=== PATIENT | female | born 1950 | race Caucasian/White ===

== ENCOUNTER 2018-02-18 09:53 | Day surgery (SDC) | payer MEDICARE, SELFPAY ==
[2018-02-18] VITALS (11 sets, daily range): BP systolic 118–197; BP diastolic 40–75; PULSE 63–97; RESP 16–22; TEMP 36.6–37; O2SAT 92–98; BMI 23.2
--- NOTE | 2018-02-18 | FIST_PTH ---
PATIENT: DANIEL PETERSEN [place] [facility] [place][id number] AGE/SX: 67/F ROOM: RE02/18/[address]: Dr. Cristian Gallegos MD : 1950 BED: DIS: 02/18/2018 SPEC #: [id number] RECD: 02/18/18 15:17 STATUS: LADONNA DARIAN #: [id number] CASSIUS: 02/18/18 00:[address]: Cristian Gallegos DEPT: SURGICAL PATHOLOGY RECD BY: Estrada Moreno ENTERED: 02/19/18 08:17 SP TYPE: Fistula OTHR DR: Dr. Chavez Brown MD Tissues: Anal region Procedures: Surgery Specimen Level III HEADER OPERATION: Fistulotomy, anal PRE-OP DIAGNOSIS: Anal fistula TISSUE SUBMITTED: Fistula tract MICROSCOPIC DIAGNOSIS Fistula tract: Pieces of skin with underlying tissue with focal acute inflammation and granulation tissue reaction, consistent with clinical impression of fistula tract. SJ:sera 02/20/18 MICROSCOPIC DESCRIPTION Slides are reviewed. GROSS DESCRIPTION Received in fixative is one container labeled with the patient's name and designated fistula tract. The specimen consists of multiple pieces of muller-yellow soft tissue that in aggregate measure 2.5 x 2 x 0.3 cm. The entire specimen is submitted in one cassette. / SJ:sera 02/19/18 TC:5 CPT: 60240
[2018-02-18 10:36] LABS: Bedside Glucose 138 mg/dL (70-110)
[2018-02-18] MEDS: Dibucaine 30 GM Tube 1 APPLIC (12:20)
[2018-02-18] MEDS: Bupivacaine Mpf 0.5% 30 ML VIAL (12:21)
--- NOTE | 2018-02-18 12:32 | DCINST_ITS ---
Discharge Diet: No Restrictions Discharge Activity: Return to Normal Activity, May Not Drive - while taking narcotic pain medications. Additional Activity Instructions:: Do not drive or work with heavy equipment or sign legal documents for 24 hours. Be aware that pain medications may cause nausea. You should typically eat light foods as you take your pain medications. Pain medications may also cause constipation, if you have difficulty with this please discuss with your doctor. Additional Dressing/Incision Instructions:: Leave the operative bandage on for 2 days. If a local anesthetic plug was placed in the anal area, try not to expel for 24-[address] dibucaine ointment on the perianal area as needed. Sitz baths twice daily and after bowel movements. Allergies/Adverse Reactions: Allergies oxycodone HCl [From Percocet] Allergy (Verified 02/13/18 09:08) Unknown hydrocodone bitartrate [From Vicodin] Adverse Reaction (Verified 02/17/18 11:03) Vomiting morphine Adverse Reaction (Verified 02/17/18 11:03) Vomiting Medications to take at Discharge Acyclovir [Zovirax] 400 mg PO BID 02/13/18 Amoxicillin/Potassium Clav [Augmentin 875-125 Tablet] 1 each PO BID 02/13/18 Fluoxetine [Prozac] 30 mg PO DAILY 02/13/18 Fluticasone/Vilanterol [Breo Ellipta 200-25 Mcg INH] 1 each IH DAILY 02/13/18 Glimepiride 0.5 mg PO DAILY 02/13/18 Hydroxyzine Pamoate 25 mg PO TID 02/13/18 Meclizine HCl [Antivert] 25 mg PO 4X/DAY PRN PRN 02/13/18 Prochlorperazine Maleate [Compazine] 10 mg PO Q6H PRN PRN 02/13/18 Dibucaine [Nupercainal] 56.7 gm RC PRN PRN 14 Days #2 oint...g. 02/18/18 The following prescriptions were given: Dibucaine [Nupercainal] 56.7 gm RC PRN PRN 14 Days #2 oint...g. PRN Reason: Pain Primary Care Physician: Chavez Brown MD [Primary Care Provider] - Test Results: Test results from this visit will be discussed in further detail at your follow- up appointment, if applicable. Please Follow Up With: Cristian Gallegos MD - [phone] When: Plan to have a follow up approximately 7 days after surgery.
--- NOTE | 2018-02-18 12:35 | PCM.OPRPT ---
Report of Operation Date of Procedure: 02/18/18 Pre-Operative Diagnosis: right perianal fistula Post-Operative Diagnosis: right perianal fistula - superficial Surgery/Procedure Performed:: examination under anesthesia, simp-le fistulotomy data compiler: None Type of Anesthesia:: General Anesthesiologist: Joseph Suazo ASA3 Specimen's removed: fistula tract Estimated Blood Loss (mL): minimal Fluids Replaced: 500 Description of Procedure: The patient was brought to the operating suite. Sign in was performed verifying patient, site, procedure, position, and DVT prophylaxis with SCDs. Clindamycin 900mg Following induction of general anesthetic. The patient was transferred to supine position to the prone jackknife position with care being taken to avoid pressure points. The patients perineal area was then prepped and draped in the usual fashion. Timeout was performed verifying patient, site, procedure, and position. External examination demonstrated a sinus in the right anterior lateral position, approximate 4 cm from anal verge without significant inflammation By digital exam revealed no obvious palpable abnormalities Anoscopy was performed which demonstrated a normal appearing dentate line. Hydration peroxide was injected into the sinus. This seemed to track along the subcutaneous tissues right to the area of the dentate line, but there was no obvious internal anal opening at the dentate line as expected, following Goodsalls rule A fistula probe was then placed into the track. The external fistula opening was excised circumferentially and the track was opened. Excess tissue was excised and hemostasis obtained with electrocautery. With good hemostasis, half percent Marcaine was injected in the perianal skin and dibucaine impregnated Gelfoam was placed in the anal canal. A dressing was applied and mesh pants were used to hold the dressing in place. The patient was returned to the supine position and extubated and brought to recovery room in stable condition. - Admit VTE Documentation VTE Present on Admission: No VTE Mechan Device Prophylaxis: SCD's VTE Pharm Prophylaxis ordered?: No
--- NOTE | 2018-02-18 12:38 | OP.PCM_ITS ---
Report of Operation Date of Procedure: 02/18/18 Pre-Operative Diagnosis: right perianal fistula Post-Operative Diagnosis: right perianal fistula - superficial Surgery/Procedure Performed:: examination under anesthesia, simp-le fistulotomy senior buyer planner: None Type of Anesthesia:: General Anesthesiologist: Joseph Suazo ASA3 Specimen's removed: fistula tract Estimated Blood Loss (mL): minimal Fluids Replaced: 500 Description of Procedure: The patient was brought to the operating suite. Sign in was performed verifying patient, site, procedure, position, and DVT prophylaxis with SCDs. Clindamycin 900mg Following induction of general anesthetic. The patient was transferred to supine position to the prone jackknife position with care being taken to avoid pressure points. The patient?s perineal area was then prepped and draped in the usual fashion. Timeout was performed verifying patient, site, procedure, and position. External examination demonstrated a sinus in the right anterior lateral position , approximate 4 cm from anal verge without significant inflammation By digital exam revealed no obvious palpable abnormalities Anoscopy was performed which demonstrated a normal appearing dentate line. Hydration peroxide was injected into the sinus. This seemed to track along the subcutaneous tissues right to the area of the dentate line, but there was no obvious internal anal opening at the dentate line as expected, following Goodsall?s rule A fistula probe was then placed into the track. The external fistula opening was excised circumferentially and the track was opened. Excess tissue was excised and hemostasis obtained with electrocautery. With good hemostasis, half percent Marcaine was injected in the perianal skin and dibucaine impregnated Gelfoam was placed in the anal canal. A dressing was applied and mesh pants were used to hold the dressing in place. The patient was returned to the supine position and extubated and brought to recovery room in stable condition. - Admit VTE Documentation VTE Present on Admission: No VTE Mechan Device Prophylaxis: SCD's VTE Pharm Prophylaxis ordered?: No
--- NOTE | 2018-02-18 13:07 | SUR.PHASEI ---
ON ARRIVAL TO PACU: ALMOST CONTINUOUS HARSH COUGH, DUONEB ORDERED ON ARRIVAL, R.T. AT BEDSIDE TO ADMINISTER, WAS REPORTEDLY ALSO GIVEN INHALED ALBUTEROL WHILE STILL IN O.R. PER ENEIDA ALONZO CRNA. NOW C/O NAUSEA. DR SWARTZ CONSULTED, INSTRUCTED TO GIVE DILAUDID TO TRY RELAXING PATIENT ENOUGH TO STOP COUGHING. ZOFRAN GIVEN.
[2018-02-18 14:01] LABS: Bedside Glucose 208 mg/dL (70-110)
== END 2018-02-18 15:50 | disposition home or self-care (01) ==
LOC: SDC 09:55 → AC 09:58
PROVIDERS: Family Provider Family Medicine; PCP Family Medicine; Visit Provider Surgery
PROC: (CPT 46270; principal; 2018-02-18 11:20)
DX: K60.3 Anal fistula (principal); C91.11 Chronic lymphocytic leukemia of B-cell type in remission; F41.9 Anxiety disorder, unspecified; J45.909 Unspecified asthma, uncomplicated; I50.9 Heart failure, unspecified; J44.9 Chronic obstructive pulmonary disease, unspecified; F32.9 Major depressive disorder, single episode, unspecified; E11.9 Type 2 diabetes mellitus without complications; Z85.3 Personal history of malignant neoplasm of breast; Z79.84 Long term (current) use of oral hypoglycemic drugs; Z79.899 Other long term (current) drug therapy; F17.210 Nicotine dependence, cigarettes, uncomplicated
CPT/HCPCS: 46270; 82962; 88304; 94640; J7120; J2405

== ENCOUNTER 2019-10-18 06:38 | Day surgery (SDC) | payer MEDICARE, SELFPAY ==
[2019-08-05 12:56] VITALS: BMI 16.9
[2019-10-18 06:55] VITALS: BP 121/65; PULSE 89; RESP 18; TEMP 37.1; O2SAT 98; BMI 16.8
[2019-10-18] MEDS: Lactated Ringers 1,000 ML 100 ML IV (07:09)
[2019-10-18 07:40] LABS: Bedside Glucose 130 mg/dL (70-110)
--- NOTE | 2019-10-18 08:00 | EGD_PTH ---
PATIENT: DANIEL PETERSEN LOC: [facility] U#:[id number] AGE/SX: 69/F ROOM: RE10/18/[address]: Dr. Neville Campos MD : 1950 BED: DIS: 10/18/2019 SPEC #: [id number] RECD: 10/18/19 13:29 STATUS: LADONNA DARIAN #: [id number] CASSIUS: 10/18/19 08:[address]: Neville Campos DEPT: SURGICAL PATHOLOGY RECD BY: Yariel Zaman ENTERED: 10/19/19 09:23 SP TYPE: EGD BIOPSY OTHR DR: Dr. Chavez Brown MD Tissues: Gastric mucous membrane Procedures: Surgery Specimen Level IV HEADER OPERATION: Colonoscopy, EGD ([facility]) PRE-OP DIAGNOSIS: Weight loss, history polyps TISSUE SUBMITTED: Antrum biopsy for histo and H. pylori MICROSCOPIC DIAGNOSIS Gastric antrum, biopsy: Rare fragments of benign gastric mucosa. See comment. AM:sera 10/20/19 COMMENT The results of immunohistochemistry for Helicobacter pylori will be reported separately ([id number]). MICROSCOPIC DESCRIPTION Slides are reviewed. GROSS DESCRIPTION Received in fixative is one container labeled with the patient's name and designated antrum biopsy. The specimen consists of multiple minute fragments of muller soft tissue that in aggregate measure 0.3 x 0.1 x <0.1 cm. The specimen is totally submitted in one cassette. / SJ:sera 10/19/19 TC:3 CPT: 17432
--- NOTE | 2019-10-18 08:00 | IMM_PTH ---
PATIENT: DANIEL PETERSEN LOC: [facility] U#:[id number] AGE/SX: 69/F ROOM: RE10/18/[address]: Dr. Neville Campos MD : 1950 BED: DIS: 10/18/2019 SPEC #: [id number] RECD: 10/19/19 11:18 STATUS: LADONNA REArin #: [id number] CASSIUS: 10/18/19 08:[address]: Neville Campos DEPT: IMMUNOHISTOCHEMISTRY RECD BY: Zuleyka Garcia ENTERED: 10/19/19 11:18 SP TYPE: IMMUNO OTHR DR: Dr. Chvaez Brown MD Tissues: Stomach, NOS Procedures: H Pylori (initial) PHYSICIAN & INSTITUTION [place] [id number] SPECIMEN INFORMATION: Tissue Source: Antrum biopsy Clinical Info: Weight loss, history polyps Specimen Number: [id number] CPT code: 20779 METHODOLOGY: Deparaffinized sections of prefer/formalin-fixed tissue or PAP/DQ stained slides are incubated with monoclonal/polyclonal antibodies/oligonucleotide probes. Localization is made via biotin free immunoperoxidase method. Appropriate controls are performed and reacted as expected. Results on target cell population are indicated in the following table: RESULTS: ANTIBODY / CLONE RESULT H Pylori (polyclonal) negative These tests were developed and their performance characteristics determined by [facility]. They may not have been cleared or approved by the U.S. Food and Drug Administration. The FDA has determined that such clearance or approval is not necessary. INTERPRETATION: Antrum, biopsy: Negative for Helicobacter pylori organisms. AM:sera 10/20/19
--- NOTE | 2019-10-18 08:04 | PCM.HP.BLA ---
History and Physical Date of Admission: 10/18/19 [facility] [address] [place], [place] [id number] OFFICE VISIT Date of Service: 08/05/19 MR#: [id number] Acct: [id number] Name: DANIEL PETERSEN Rep #: [id number] : 1950 Provider: Neville Campos MD Age/Sex: 69/F Location: [facility] Status: Signed Intake Vital Signs 08/05/19 Height 5 ft 1 in 08/05/19 Weight: 90 lb 08/05/19 BMI 16.9 08/05/19 BP 94/58 L 08/05/19 Blood Pressure Location Rt brachial 08/05/19 Position Sitting 08/05/19 Respiration 18 08/05/19 Pulse 88 08/05/19 Pulse Source Monitor 08/05/19 Temp 98.0 F 08/05/19 Temp Source Oral 08/05/19 Pulse Oximetry (%) 93 08/05/19 Oxygen Delivery Method room air Intake Visit Reasons: EGD & C-SCOPE Allergies oxycodone HCl [From Percocet] Allergy (Verified 08/05/19 12:57) Unknown hydrocodone bitartrate [From Vicodin] Adverse Reaction (Verified 08/05/19 12:57) Vomiting morphine Adverse Reaction (Verified 08/05/19 12:57) Vomiting [facility] Medical History Anemia (Acute) Arthritis (Acute) Diabetes (Acute) History of back problems (Acute) Hyperlipidemia (Acute) Nausea (Acute) Tobacco abuse (Acute) Unintentional weight loss (Acute) diarhhea (Acute) COPD (chronic obstructive pulmonary disease) (Chronic) Surgical History History of appendectomy (Acute) History of hysterectomy (Acute) History of laparoscopic cholecystectomy (Acute) history left arm biopsy (Acute) history left carpal tunnel release (Acute) history right ulnar nerve decompression (Acute) Family History Father Arthritis Heart disease Mother Breast cancer Brother Cancer Hypertension Sister Cancer Uncle Diabetes Social History (Updated 08/05/19 @ 13:[address] Neville Campos MD) Smoking Status: Current every day smoker alcohol intake: never substance use type: does not use HPI HPI HPI: DANIEL PETERSEN, is a 69 F who presents to the office today for Evaluation of abnormal weight loss. Patient states that since 2018 she has lost over 36 pounds. This is all been unintentional she has been eating she has been moving her bowels she has not noticed any change in her bowel habits. Patient has had a colonoscopy on 02/24/2017. She was noted to have 2 polyps in the descending colon 1 of them of which was a tubular adenoma. 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 She states that she has been gassy and occasionally will have a loose stool but on average has between 2 and 3 bowel movements a day. She has not noticed any bloody or black stool she denies any abdominal pain ROS General General: Yes weight change and fatigue; no appetite, colon cancer, breast cancer or weakness HEENT HEENT: No difficulty swallowing, eye injury, eye surgery, swollen glands or hoarseness Endo Endocrine: Yes diabetes mellitus; no thyroid disease, thyroid cancer, Hair loss, heat intolerance or cold intolerance Skin Skin: No rash or changing moles Breast Breast: No left breast lump, right breast lump, nipple discharge, breast pain, abnormal mammogram, abnormal US or breast enlargement Musc Musculoskeletal: Yes back problems and arthritis; no rheumatoid arthritis, gout or joint pain Cardio Cardiovascular: Yes high blood pressure; no murmur, pacemaker, heart disease, atrial fibrillation, heart attack, heart stent, palpitations, shortness of breat with exertion or chest pain Psych Psychiatric: Yes depression and anxiety; no hearing voices Resp Respiratory: Yes shortness of breath, No sleep apnea, Yes cough, Yes COPD, No asthma, No emphysema, No wheezing Gastro Gastrointestinal: No abdominal pain, Yes nausea or vomiting, Yes diarrhea, No constipation, No blood in stool, No acid reflux, No hemorrhoids, No ulcers, No gallbladder problem, No black,tarry stools Joe Hematologic: No blood thinners, No blood disorders, No bleeding, Yes anemia, No blood clots Neuro Neurologic: No system reviewed and no additional complaints, except as docu, No as per HPI, No abnormal walking, No abnormal hearing, No abnormal movements, No abnormal speech, No behavioral changes, No burning sensations, No confusion, No seizure-like activity, No unsteadiness, No dizziness, No localized weakness, No frequent falls, No headache(s), No lack of coordination, No loss of vision, No memory loss, No numbness, No other visual disturbances, No radiating pain, No restless legs, No sensory deficit, No fainting, No tingling, No tremor(s), No weakness, No other Exam Const General: no acute distress, well developed, well hydrated Orientation: oriented to person, oriented to place, oriented to time [facility] Head: normocephalic, atraumatic Ears: external ears normal Mouth: moist mucous membranes Eyes Sclera: sclerae normal Pupils: normal by confrontation Neck Neck: no lymphadenopathy noted Neck mass: No Thyroid: thyroid normal, symmetrical Chest Chest palpation & inspection: normal inspection of the chest Breast Palpation: No nipple discharge Resp Effort & Inspection: normal respiratory effort Auscultation: clear to auscultation bilaterally Percussion: percussion normal Cardio Rate: regular rate Rhythm: regular rhythm Heart Sounds: no murmurs GI Palpation: soft, no hepatosplenomegaly, no masses, nontender Rectal Exam: other Other: Rectal exam deferred. Extrem General: normal to inspection, no clubbing, cyanosis or edema Assessment & Plan Problems 1. Weight loss, non-intentional R63.4 2. Personal history of colonic polyps Z86.010 Plan I have discussed the above with the patient. I have offered the patient colonoscopy As well as an EGD for evaluation. I have explained the risks/benefits of the procedure and described the procedure. I have discussed the risks with the patient, including but not limited to: infection, bleeding, perforation of the GI tract requiring emergency surgery, inability to complete the procedure, injury to any internal organs, complications of anesthesia, etc. - the patient understands and agrees to proceed. I have answered all the patient's questions to the patient's satisfaction and the patient has no further questions. The patient has been given instructions for the colon cleansing preparation. Coding Level of Care Code Off vis,new,level 3 Diagnoses Weight loss, non-intentional R63.4 Personal history of colonic polyps Z86.010 08/05/19 1301 <Electronically signed by Neville Campos MD> Date Neville Campos MD Cosigner Signature: Date (if applicable) CC: MARU HERCULES; Chavez Brown MD ~ I have re-examined the patient. There are no clinical changes since date of exam.
[2019-10-18 08:42] VITALS: BP 111/60; BP 121/65; PULSE 83; RESP 18; TEMP 37; O2SAT 99
--- NOTE | 2019-10-18 08:42 | OP.EGD_ITS ---
Patient Name: Casi Gerardo Procedure Date: 10/18/2019 8:06 AM Date of : 1950 Age: 69 Procedure: Upper GI endoscopy Indications: Weight loss Providers: Neville Campos MD Referring MD: Chavez Brown Medicines: See the Anesthesia note for documentation of the administered medications Patient Profile: This is a 69 year old female. Refer to note in patient chart for documentation of history and physical. Complications: No immediate complications. Procedure: Pre-Anesthesia Assessment: - Prior to the procedure, a History and Physical was performed, and patient medications and allergies were reviewed. The patient's tolerance of previous anesthesia was also reviewed. The risks and benefits of the procedure and the sedation options and risks were discussed with the patient. All questions were answered, and informed consent was obtained. Prior Anticoagulants: The patient has taken no previous anticoagulant or antiplatelet agents. ASA Grade Assessment: II - A patient with mild systemic disease. After reviewing the risks and benefits, the patient was deemed in satisfactory condition to undergo the procedure. After obtaining informed consent, the endoscope was passed under direct vision. Throughout the procedure, the patient's blood pressure, pulse, and oxygen saturations were monitored continuously. The gastroscope was introduced through the mouth, and advanced to the second part of duodenum. The upper GI endoscopy was accomplished without difficulty. The patient tolerated the procedure well. Scope In: 8:18:36 AM Scope Out: 8:22:48 AM Total Procedure Duration Time 0 hours 4 minutes 12 seconds Findings: The examined esophagus was normal. No biopsies or other specimens were collected for this exam. The entire examined stomach was normal. Biopsies were taken with a cold forceps for Helicobacter pylori testing. The examined duodenum was normal. No biopsies or other specimens were collected for this exam. Impression: - Normal esophagus. No specimens collected. - Normal stomach. Biopsied. - Normal examined duodenum. No specimens collected. Recommendation: - Discharge patient to home. - Resume previous diet. - Continue present medications. - Await pathology results. - Repeat upper endoscopy (date not yet determined) for surveillance. - Return to my office in 1 week. Procedure Code(s): --- Professional --- 16974, Esophagogastroduodenoscopy, flexible, transoral; with biopsy, single or multiple Diagnosis Code(s): --- Professional --- R63.4, Abnormal weight loss CPT copyright 2017 [employer]. All rights reserved. The codes documented in this report are preliminary and upon production operations engineer review may be revised to meet current compliance requirements. MD Neville Chapman MD 10/18/2019 8:42:09 AM This report has been signed electronically. Number of Addenda: 0 Note Initiated On: 10/18/2019 8:06 AM
--- NOTE | 2019-10-18 08:42 | OP.CCLET_ITS ---
10/18/2019 Chavez Brown Re : Upper GI endoscopy procedure for Casi Gerardo Xiomyr Kevin This procedure was performed on Friday, October 18, 2019. My impressions and recommendations are as follows: Impressions : - Normal esophagus. No specimens collected. - Normal stomach. Biopsied. - Normal examined duodenum. No specimens collected. Recommendations : - Discharge patient to home. - Resume previous diet. - Continue present medications. - Await pathology results. - Repeat upper endoscopy (date not yet determined) for surveillance. - Return to my office in 1 week. My findings are described in the full procedure note, which is enclosed. If I can be of further assistance, please feel free to contact me at Doctor phone number(s): , Fax: [phone], Work: . Sincerely, MD Neville Chapman MD 10/18/2019 8:42:09 AM This report has been signed electronically.
[2019-10-18 08:45] VITALS: BP 108/55; BP 121/65; PULSE 75; RESP 18; O2SAT 100
--- NOTE | 2019-10-18 08:46 | OP.COLON_ITS ---
Patient Name: Casi Gerardo Procedure Date: 10/18/2019 8:23 AM Date of : 1950 Age: 69 Procedure: Colonoscopy Indications: High risk colon cancer surveillance: Personal history of colonic polyps Providers: Neville Campos MD Referring MD: Chavez Brown Medicines: See the Anesthesia note for documentation of the administered medications Patient Profile: This is a 69 year old female. Refer to note in patient chart for documentation of history and physical. Last Colonoscopy: 2016. Complications: No immediate complications. Procedure: Pre-Anesthesia Assessment: - Prior to the procedure, a History and Physical was performed, and patient medications and allergies were reviewed. The patient's tolerance of previous anesthesia was also reviewed. The risks and benefits of the procedure and the sedation options and risks were discussed with the patient. All questions were answered, and informed consent was obtained. Prior Anticoagulants: The patient has taken no previous anticoagulant or antiplatelet agents. ASA Grade Assessment: II - A patient with mild systemic disease. After reviewing the risks and benefits, the patient was deemed in satisfactory condition to undergo the procedure. After I obtained informed consent, the scope was passed under direct vision. Throughout the procedure, the patient's blood pressure, pulse, and oxygen saturations were monitored continuously. The colonoscope was introduced through the anus with the intention of advancing to the cecum. The scope was advanced to the sigmoid colon before the procedure was aborted. Medications were given. The colonoscopy was aborted due to a tortuous colon. Scope In: 8:24:49 AM Scope Out: 8:38:02 AM Total Procedure Duration Time 0 hours 13 minutes 13 seconds Findings: Non-bleeding internal hemorrhoids were found during retroflexion. The hemorrhoids were mild and small. Impression: - The procedure was aborted due to a tortuous colon. - Non-bleeding internal hemorrhoids. - No specimens collected. Recommendation: - Perform an air contrast barium enema today. - Repeat colonoscopy in 5 years for surveillance. - Continue present medications. Procedure Code(s): --- Professional --- 48423, 53, Colonoscopy, flexible; diagnostic, including collection of specimen(s) by brushing or washing, when performed (separate procedure) Diagnosis Code(s): --- Professional --- Z86.010, Personal history of colonic polyps Z53.8, Procedure and treatment not carried out for other reasons K64.8, Other hemorrhoids CPT copyright 2017 [employer]. All rights reserved. The codes documented in this report are preliminary and upon frame polisher review may be revised to meet current compliance requirements. MD Neville Chapman MD 10/18/2019 8:45:52 AM This report has been signed electronically. Number of Addenda: 0 Note Initiated On: 10/18/2019 8:23 AM
--- NOTE | 2019-10-18 08:46 | OP.CCLET_ITS ---
10/18/2019 Chavez Brown Re : Colonoscopy procedure for Casi Staufferr Kevin This procedure was performed on Friday, October 18, 2019. My impressions and recommendations are as follows: Impressions : - The procedure was aborted due to a tortuous colon. - Non-bleeding internal hemorrhoids. - No specimens collected. Recommendations : - Perform an air contrast barium enema today. - Repeat colonoscopy in 5 years for surveillance. - Continue present medications. My findings are described in the full procedure note, which is enclosed. If I can be of further assistance, please feel free to contact me at Doctor phone number(s): , Fax: [phone], Work: . Sincerely, MD Neville Chapman MD 10/18/2019 8:45:52 AM This report has been signed electronically.
[2019-10-18 08:50] VITALS: BP 108/48; BP 121/65; PULSE 72; RESP 16; O2SAT 100
[2019-10-18 08:56] VITALS: BP 110/55; BP 121/65; PULSE 72; RESP 16; TEMP 36.9; O2SAT 97
[2019-10-18 09:56] VITALS: BP 121/65
--- NOTE | 2019-10-18 10:00 | RAD_ITS ---
STUDY: AIR-CONTRAST BARIUM ENEMA REASON FOR EXAM: Female, 69 years old. Weight loss. Incomplete colonoscopy FLUOROSCOPY TIME (if supplied): (1:15) minutes/seconds TECHNIQUE: Computer Information Science Professor view. Multiple views of the colon were performed during barium retrograde filling and during inflation. Multiple overhead views were also obtained. COMPARISON: None. FINDINGS: Computer Information Science Professor view: Unremarkable bowel gas pattern is noted there is no evidence of free air in the abdomen. Air contrast enema: Normal retrograde opacification of the colon is noted up to the cecum. No reflux is noted in the terminal ileal loop. Air contrast views and overhead views show no filling defect in the colon. There is no evidence of a restricting lesion or ulceration. Multiple diverticula are seen in the sigmoid colon without evidence of diverticulitis. The post void film shows no significant residue in the colon. RAD/Barium Enema w/Air Contrast IMPRESSION: Sigmoid diverticulosis. Electronically Signed: Carolynn Argueta, at 12:37 EDT Tel , Service support ,
== END 2019-10-18 09:58 | disposition home or self-care (01) ==
LOC: EN 06:39 → AC 06:39
PROVIDERS: PCP Family Medicine; Referring Provider Family Medicine; Visit Provider Surgery
PROC: 0DJD8ZZ Inspection of Lower Intestinal Tract, Via Natural or Artificial Opening Endoscopic (ICD-10-PCS; CPT 45378; principal; 2019-10-18 07:55)
DX: Z12.11 Encounter for screening for malignant neoplasm of colon (principal); Z86.010 Personal history of colon polyps; K64.8 Other hemorrhoids; R63.4 Abnormal weight loss; Z68.1 Body mass index [BMI] 19.9 or less, adult; E11.9 Type 2 diabetes mellitus without complications; E78.5 Hyperlipidemia, unspecified; J44.9 Chronic obstructive pulmonary disease, unspecified; M19.90 Unspecified osteoarthritis, unspecified site; F17.200 Nicotine dependence, unspecified, uncomplicated; Z86.19 Personal history of other infectious and parasitic diseases; Z85.72 Personal history of non-Hodgkin lymphomas; F41.9 Anxiety disorder, unspecified; F32.9 Major depressive disorder, single episode, unspecified; Z79.899 Other long term (current) drug therapy; Z79.84 Long term (current) use of oral hypoglycemic drugs; I10 Essential (primary) hypertension; Z11.59 Encounter for screening for other viral diseases
CPT/HCPCS: 43239; G0105; 74280; 82962; 87635; 88305; 88342; G2023; J7120; J2405; U0002

== ENCOUNTER → 2020-07-05 11:51 | Outpatient (CLI) | payer MEDICARE, SELFPAY ==
[2020-07-05 16:21] LABS: AST(SGOT) 7 U/L (15-37); Alanine Aminotransfer ALT/SGPT 8 U/L (13-56); Albumin, Serum 3.3 g/dL (3.2-5.0); Alkaline Phosphatase 139 U/L (45-117); Bilirubin, Direct < 0.05 mg/dL (0.00-0.30); Globulin 3.7 g/dL (2.2-4.2)
[2020-07-07 12:42] LABS: Carbohydrate AG 19-9 14 U/mL (0-35)
[2020-07-07 13:52] LABS: GGTP 16 U/L (5-55)
== END ==
PROVIDERS: PCP Family Medicine; Referring Provider Internal Medicine Gastroenterology; Visit Provider Internal Medicine Gastroenterology
DX: K83.1 Obstruction of bile duct (principal); R97.8 Other abnormal tumor markers
CPT/HCPCS: 36415; 80076; 82977; 86140; 86301

== ENCOUNTER 2021-03-22 13:27 | Inpatient (IN) | payer MEDICARE, SELFPAY ==
[2021-03-22] VITALS (10 sets, daily range): BP systolic 94–127; BP diastolic 44–74; PULSE 60–98; RESP 16–20; TEMP 36–38.2; O2SAT 86–99; BMI 17.5; BMI 17.9
--- NOTE | 2021-03-22 14:05 | RAD_ITS ---
STUDY: X-RAY CHEST REASON FOR EXAM: Female, 70 years old. Sob TECHNIQUE: Single AP portable view of the chest. COMPARISON: None. FINDINGS: EKG electrodes are seen. There is hyperinflation of the lungs consistent with chronic obstructive lung disease (COPD). There is evidence of the infiltration in the right upper lobe. Underlying right hilar mass with postobstructive pneumonitis should be ruled out. Correlation with a CT scan is recommended. There is no demonstrated pleural abnormality. Normal size heart. Normal visualized pulmonary arteries. There is atherosclerotic calcification of the aortic arch with tortuosity. Normal visualized thoracic spine. Normal visualized ribs, clavicles, and shoulders. There is no demonstrated abnormality of the visualized soft tissue structures of the upper abdomen. RAD/Chest 1 View (Portable) IMPRESSION: Hyperinflation. Infiltration in the right upper lobe. Correlation with a CT scan is recommended to rule out a right hilar mass with postobstructive pneumonitis. Electronically Signed: Ananth Mg MD at 14:25 EDT , Service support ,
--- NOTE | 2021-03-22 14:10 | EKG12_ITS ---
Test Reason : SOB Blood Pressure : / mmHG Vent. Rate : 079 BPM Atrial Rate : 079 BPM P-R Int : 178 ms QRS Dur : 090 ms QT Int : 382 ms P-R-T Axes : 077 060 003 degrees QTc Int : 438 ms Normal sinus rhythm with sinus arrhythmia Nonspecific T wave abnormality Abnormal ECG Confirmed by DONNA CANO, JAY ([id number]), food editor CARYL PRUITT ([id number]) on 03/27/2021 8:26:47 AM Referred By: Confirmed By:JAY THOMPSON MD
[2021-03-22 14:22] LABS: Absolute Lymphocyte Count 0.82 X10^3/uL (0.83-4.51); Absolute Neutrophil Count 10.4 X10^3/uL (2.0-7.7); Basophil# 0.04 X10^3/uL; Basophil% 0.3 % (0-1); Eosinophil# 0.62 X10^3/uL; Eosinophils% 4.8 % (0-5); Hematocrit 33.7 % (37-47); Hemoglobin 10.8 g/dL (12.0-15.0); Lymphocyte # 0.82 X10^3/ul (0.83-4.51); Lymphocyte % 6.3 % (19-41); Mean Corpuscular Hgb 30.6 pg (27.0-32.0); Mean Corpuscular Volume 95.5 fL (81-99); Mean Platelet Vol. 8.9 fl (6.2-12.0); Monocyte# 0.98 X10^3/uL; Monocyte% 7.6 % (0-10); NRBC Flagged by Analyzer 0 % (0-5); Neutrophil # 10.39 X10^3/uL (2.7-7.7); Neutrophil % 80.3 % (47-70); Platelet Count 380 K/mm3 (150-450); RBC Distribution Width CV 13.1 % (11.6-14.6); Red Blood Count 3.53 M/mm3 (4.2-5.4); White Blood Count 12.9 K/mm3 (4.4-11.0)
[2021-03-22] MEDS: Albuterol 2.5 MG/3 ML VIAL.NEB. INHALATION ×3 (14:25→14:39)
[2021-03-22 14:36] LABS: ALB/GLOB Ratio 0.6 RATIO (0.9-2.4); AST(SGOT) 3 U/L (15-37); Alanine Aminotransfer ALT/SGPT 7 U/L (13-56); Albumin, Serum 2.4 g/dL (3.2-5.0); Alkaline Phosphatase 130 U/L (45-117); Anion Gap 8 (5-15); BUN 13 mg/dL (7-18); BUN/Creat Ratio 20.7 RATIO (10-20); Calcium,Total 8.6 mg/dL (8.5-10.1); Chloride 99 mmol/L (98-107); Creatinine, Serum 0.63 mg/dL (0.55-1.02); EST Glomerular Filtration Rate 99 mL/min (>60); Est Glom Filt Rate - Afr Amer 120 mL/min (>60); Estimated Creatinine Clearance 34.36 ml/min; Globulin 4.1 g/dL (2.2-4.2); Glucose 160 mg/dL (74-106); Potassium 3.2 mmol/L (3.5-5.1); Protein, Total 6.5 g/dL (6.4-8.2); Sodium Level 137 mmol/L (136-145); Troponin-I HS 12 pg/mL (3.0-54.0)
--- NOTE | 2021-03-22 15:25 | ED.VIS.DYS ---
HPI History of Present Illness Chief Complaint: Shortness of Breath Narrative Narrative: Patient presents with shortness of breath for the past week, no fevers she does have a cough which is productive. She has a history of COPD, she is not on any home oxygen. She had her Covid vaccinations. She drove her self here and was found to be 88% on room air. [facility] Medical History (Updated 03/22/21 @ 15:[address] Russ Hay MD) Anemia Arthritis COPD (chronic obstructive pulmonary disease) Diabetes diarhhea History of back problems Hyperlipidemia Nausea Tobacco abuse Unintentional weight loss Home Medications hydroxyzine pamoate 25 mg PO TID 02/13/18 [History Last Taken Unknown] meclizine 25 mg PO 4X/DAY PRN PRN 02/13/18 [History Last Taken Unknown] prochlorperazine maleate 10 mg PO Q6H PRN PRN 02/13/18 [History Last Taken Unknown] fluoxetine 20 mg capsule 40 mg PO DAILY cap 08/05/19 [History Last Taken Unknown] fluticasone propionate 230 mcg-salmeterol 21 mcg/actuation HFA inhaler 2 puff INHALATION BID 08/05/19 [History Last Taken Unknown] ipratropium bromide 17 mcg/actuation HFA aerosol inhaler 2 puff INHALATION TID 08/05/19 [History Last Taken Unknown] lisinopril 5 mg tablet 5 mg PO DAILY 08/05/19 [History Last Taken 10/18/19] metformin 500 mg tablet 500 mg PO BID 08/05/19 [History Last Taken Unknown] pantoprazole 40 mg tablet,delayed release 40 mg PO DAILY 08/05/19 [History Last Taken 10/18/19] perflutren lipid microspheres 1.1 mg/mL intravenous suspension See Rx Instructions .ROUTE QMONTH ml 08/05/19 [History Last Taken Unknown] pravastatin 10 mg tablet 10 mg PO DAILY 08/05/19 [History Last Taken Unknown] tizanidine 4 mg capsule 4 mg PO TID PRN 08/05/19 [History Last Taken Unknown] trazodone 50 mg tablet 50 mg PO QHS PRN 08/05/19 [History Last Taken Unknown] albuterol sulfate 1 - 2 puff INHALATION Q4H PRN PRN 08/16/19 [History Last Taken 10/18/19] Allergy/AdvReac Type Severity Reaction Status Date / Time oxycodone HCl [From Percocet] Allergy Unknown Verified 03/22/21 13:56 hydrocodone bitartrate AdvReac Vomiting Verified 03/22/21 13:56 [From Vicodin] morphine AdvReac Vomiting Verified 03/22/21 13:56 Family History Father Arthritis Heart disease Mother Breast cancer Brother Cancer Hypertension Sister Cancer Uncle Diabetes Surgical History history left arm biopsy history left carpal tunnel release History of appendectomy History of esophagogastroduodenoscopy (EGD) (~10/18/19) History of hysterectomy History of laparoscopic cholecystectomy history right ulnar nerve decompression S/P colonoscopy (~10/18/19) Social History (Updated 10/26/19 @ 09:[address] Neville Campos MD) Smoking Status: Former smoker alcohol intake: never substance use type: does not use ROS ROS ED ROS Narrative Past medical history: Reviewed, includes COPD, diabetes, GERD, hypercholesterolemia, insomnia Medications: Reviewed Social history: Noncontributory Review of systems: All systems negative except as indicated General: No fever Eyes: No visual changes ENT: No upper airway congestion, normal voice Neck: No neck pain Cardiovascular: No chest pain Respiratory: Shortness of breath as in HPI Gastrointestinal: No abdominal pain, nausea vomiting or diarrhea Genitourinary: No dysuria Musculoskeletal: Denies myalgias no difficulty with ambulation Skin: No rash Neurological: No memory loss, confusion or any focal weakness Psych: No recent behavioral changes Hematologic: No easy bleeding or easy bruising EXAM Physical Exam Narrative Exam Narrative: Physical exam General: Well nourished, Well developed, No Acute Distress Head: Normocephalic, Atraumatic Eyes: Conjunctiva not pale ENT: Moist mucous membranes Neck: Supple, Nontender, No lymphadenopathy Cardiovascular: Regular rate, Regular rhythm Respiratory: Bilateral end expiratory wheezing, she is speaking in full sentences but by the time I saw her she was feeling much better on 2 L. Abdomen: Soft, Nontender, Nondistended Back: Nontender, Normal Inspection. Negative for: CVA tenderness Extremities: Nontender, No edema Skin: Normal color, No rash Neurological: Alert, Normal Strength, Normal Sensation Psychological: Normal affect Const Vital Signs: 03/22/21 13:27 03/22/21 13:57 03/22/21 13:58 Temperature 96.8 F L 96.8 F L Temperature Source Temporal Temporal Pulse Rate 98 84 Respiratory Rate 20 H 20 H Respiratory Effort Short of Breath Labored Respiratory Depth Normal Respiratory Pattern Normal Blood Pressure 94/44 L 94/44 L Blood Pressure Mean 60 60 Pulse Ox 92 88 98 Oxygen Delivery Method Room Air Room Air Nasal Cannula Oxygen Flow Rate (L/min) 2 03/22/21 14:26 Temperature Temperature Source Pulse Rate 82 Respiratory Rate 17 Respiratory Effort Respiratory Depth Respiratory Pattern Normal Blood Pressure Blood Pressure Mean Pulse Ox Oxygen Delivery Method Oxygen Flow Rate (L/min) MDM MDM MDM Narrative Medical decision making narrative: Patient is found to have a right-sided pneumonia which makes sense to me clinically she has some leukocytosis. I will treat her as such and admit her for hypoxia. Lab Data Labs: Laboratory Results - last 24 hr 03/22/21 03/22/21 14:05 14:05 WBC 12.9 H RBC 3.53 L Hgb 10.8 L Hct 33.7 L MCV 95.5 MCH 30.6 MCHC 32.0 RDW Std Deviation 46.0 H RDW Coeff of Nicholas 13.1 Plt Count 380 MPV 8.9 Immature Gran % (Auto) 0.700 Neut % (Auto) 80.3 H Lymph % (Auto) 6.3 L [place] % (Auto) 7.6 Eos % (Auto) 4.8 Baso % (Auto) 0.3 Absolute Neuts (auto) 10.4 H Absolute Lymphs (auto) 0.82 L Nucleated RBC % 0 Sodium 137 Potassium 3.2 L Chloride 99 Carbon Dioxide 30.0 Anion Gap 8 BUN 13 Creatinine 0.63 Estim Creat Clear Calc 34.36 Est GFR (MDRD) Af Amer 120 Est GFR (MDRD) Non-Af 99 BUN/Creatinine Ratio 20.7 H Glucose 160 H Calcium 8.6 Total Bilirubin 0.40 AST 3 L ALT 7 L Alkaline Phosphatase 130 H Troponin I High Sens 12 Total Protein 6.5 Albumin 2.4 L Globulin 4.1 Albumin/Globulin Ratio 0.6 L Radiography Diagnostic Testing: Clinical Impression(s) from Imaging Studies Chest X-Ray 03/22/21 14:05 IMPRESSION: Hyperinflation. Infiltration in the right upper lobe. Correlation with a CT scan is recommended to rule out a right hilar mass with postobstructive pneumonitis. Electronically Signed: Ananth Mg MD at 14:25 EDT , Service support , I see a right-sided pneumonia, radiologist wants to get a CT to rule out a hilar mass. Discharge Plan Triage Chief Complaint: Shortness of Breath ED Provider: Russ Hay Dx/Rx/DC Orders Clinical Impression: COPD exacerbation, Pneumonia, Hypoxia Prescriptions: No Action fluticasone propion-salmeterol 230-21 mcg/actuation HFA aerosol inhaler 2 puff INHALATION BID RF: 0 ipratropium bromide 17 mcg/actuation HFA aerosol inhaler 2 puff INHALATION TID RF: 0 lisinopril 5 mg tablet 5 mg PO DAILY RF: 0 metformin 500 mg tablet 500 mg PO BID RF: 0 pantoprazole 40 mg tablet,delayed release (DR/EC) 40 mg PO DAILY RF: 0 pravastatin 10 mg tablet 10 mg PO DAILY RF: 0 tizanidine 4 mg capsule 4 mg PO TID PRN (Reason: Pain Or Fever) RF: 0 trazodone 50 mg tablet 50 mg PO QHS PRN (Reason: Sleep) RF: 0 perflutren lipid microspheres 1.1 mg/mL suspension See Rx Instructions .ROUTE QMONTH RF: 0 prochlorperazine maleate 10 MG tablet 10 mg PO Q6H PRN PRN (Reason: Nausea) RF: 0 meclizine 25 MG tablet 25 mg PO 4X/DAY PRN PRN (Reason: Dizziness) RF: 0 hydroxyzine pamoate 25 MG capsule 25 mg PO TID RF: 0 fluoxetine 20 mg capsule 40 mg PO DAILY RF: 0 albuterol sulfate 1 INHALER inhaler 1 - 2 puff inhalation Q4H PRN PRN (Reason: Sob &/Or Wheezing) RF: 0 Primary Care Provider: Chavez Brown Referrals: Chavez Borwn MD [Primary Care Provider] - Disposition Disposition: Acute Care [facility]
--- NOTE | 2021-03-22 15:32 | HP.PCM.HOS_ITS ---
HPI - General General Date of Admission: 03/22/21 HPI Narrative DANIEL PETERSEN, is a 70 F with a PMH as outlined who presents with a complaint of shortness of breath and an associated productive cough. She denied any fever, chills, chest pain, palpitations, dizziness, nausea or vomiting. She has had her COVID shots. Her rapid covid test was negative, and CXR showed a right lower lobe pneumonia. Vitals were temperature of 96.8 Fahrenheit with blood pressure of 94/44 and pulse rate of 84. She was breathing at a rate of 20 and pulse ox was 88% on room air but went up to 98% on 2 L of oxygen. She has been admitted to be managed for acute COPD exacerbation and community-acquired pneumonia. [facility] Medical History (Updated 03/22/21 @ 15:[address] Russ Hay MD) Anemia Arthritis COPD (chronic obstructive pulmonary disease) Diabetes diarhhea History of back problems Hyperlipidemia Nausea Tobacco abuse Unintentional weight loss Home Medications hydroxyzine pamoate 25 mg PO TID 02/13/18 [History Last Taken Unknown] meclizine 25 mg PO 4X/DAY PRN PRN 02/13/18 [History Last Taken Unknown] prochlorperazine maleate 10 mg PO Q6H PRN PRN 02/13/18 [History Last Taken Unknown] fluoxetine 20 mg capsule 40 mg PO DAILY cap 08/05/19 [History Last Taken Unknown] fluticasone propionate 230 mcg-salmeterol 21 mcg/actuation HFA inhaler 2 puff INHALATION BID 08/05/19 [History Last Taken Unknown] ipratropium bromide 17 mcg/actuation HFA aerosol inhaler 2 puff INHALATION TID 08/05/19 [History Last Taken Unknown] lisinopril 5 mg tablet 5 mg PO DAILY 08/05/19 [History Last Taken 10/18/19] metformin 500 mg tablet 500 mg PO BID 08/05/19 [History Last Taken Unknown] pantoprazole 40 mg tablet,delayed release 40 mg PO DAILY 08/05/19 [History Last Taken 10/18/19] perflutren lipid microspheres 1.1 mg/mL intravenous suspension See Rx Instructions .ROUTE QMONTH ml 08/05/19 [History Last Taken Unknown] pravastatin 10 mg tablet 10 mg PO DAILY 08/05/19 [History Last Taken Unknown] tizanidine 4 mg capsule 4 mg PO TID PRN 08/05/19 [History Last Taken Unknown] trazodone 50 mg tablet 50 mg PO QHS PRN 08/05/19 [History Last Taken Unknown] albuterol sulfate 1 - 2 puff INHALATION Q4H PRN PRN 08/16/19 [History Last Taken 10/18/19] Allergy/AdvReac Type Severity Reaction Status Date / Time oxycodone HCl [From Percocet] Allergy Unknown Verified 03/22/21 13:56 hydrocodone bitartrate AdvReac Vomiting Verified 03/22/21 13:56 [From Vicodin] morphine AdvReac Vomiting Verified 03/22/21 13:56 Family History Father Arthritis Heart disease Mother Breast cancer Brother Cancer Hypertension Sister Cancer Uncle Diabetes Surgical History history left arm biopsy history left carpal tunnel release History of appendectomy History of esophagogastroduodenoscopy (EGD) (~10/18/19) History of hysterectomy History of laparoscopic cholecystectomy history right ulnar nerve decompression S/P colonoscopy (~10/18/19) Social History (Updated 10/26/19 @ 09:[address] Neville Campos MD) Smoking Status: Former smoker alcohol intake: never substance use type: does not use ROS Review of Systems ROS Unobtainable: Denies due to encephalopathy Constitutional Constitutional: Reports chills, fatigue, malaise and weakness; Denies anorexia or fever(s) Eyes Eyes: Denies change in vision ENT HEENT: Denies headache(s), nasal discharge or sore throat Cardiovascular Cardiovascular: Reports dyspnea on exertion; Denies chest pain, claudication, edema, lightheadedness, orthopnea, palpitations, paroxysmal nocturnal dyspnea, rapid heart rate or syncope Respiratory/Chest Respiratory/Chest: Reports cough, dyspnea, productive cough, shortness of breath at rest and shortness of breath with exertion Gastrointestinal Gastrointestinal: Denies abdominal pain, constipation, diarrhea, nausea or vomiting Genitourinary Genitourinary: Denies burning urination or dysuria Musculoskeletal Musculoskeletal: Denies arthralgias or joint pain Neurologic Neurologic: Denies confusion, dizziness, focal weakness or syncope Psychiatric Psychiatric: Denies anxiety or depression Endocrine Endocrinology: Denies change in body appearance Hematologic/Lymphatic Hematologic/Lymphatic: Denies anemia Allergic/Immunologic Allergic/Immunologic: Denies asthma Vital Signs Vital Signs Vital Signs: 03/22/21 13:27 03/22/21 13:57 03/22/21 13:58 Temperature 96.8 F L 96.8 F L Temperature Source Temporal Temporal Pulse Rate 98 84 Respiratory Rate 20 H 20 H Respiratory Effort Short of Breath Labored Respiratory Depth Normal Respiratory Pattern Normal Blood Pressure 94/44 L 94/44 L Blood Pressure Mean 60 60 Pulse Ox 92 88 98 Oxygen Delivery Method Room Air Room Air Nasal Cannula Oxygen Flow Rate (L/min) 2 03/22/21 14:26 Temperature Temperature Source Pulse Rate 82 Respiratory Rate 17 Respiratory Effort Respiratory Depth Respiratory Pattern Normal Blood Pressure Blood Pressure Mean Pulse Ox Oxygen Delivery Method Oxygen Flow Rate (L/min) Weight Weight: 93 lb Body Mass Index (BMI) 17.5 Physical Exam Const alert, oriented x3, no apparent distress and well nourished General Appearance: cooperative HEENT normocephalic, head/scalp atraumatic and moist oral mucous membranes Eyes PERRL, EOMs intact bilaterally and conjunctivae normal Neck no lymphadenopathy Resp Resp Narrative: tachypneic, diminished breath sounds bibasally, no wheezes or crackles. On 2L of oxygen Cardio regular rate, regular rhythm, S1 normal heart sound, S2 normal heart sound and no murmurs GI normal to inspection, nondistended, normoactive bowel sounds, soft to palpation, non-tender and non-distended Extremity normal to inspection, full ROM and no clubbing, cyanosis or edema Peripheral Pulses: Yes pulses 2+ throughout Skin no rashes or lesions noted Neuro oriented x3, CN's II-XII intact bilaterally and moves all extremities Sensorium / Orientation: awake and alert Psych affect normal Results Lab / Micro Data Result Diagrams: 03/22/21 14:05 03/22/21 14:05 Labs: Laboratory Results - last 24 hr 03/22/21 14:05: WBC 12.9 H, RBC 3.53 L, Hgb 10.8 L, Hct 33.7 L, MCV 95.5, MCH 30.6, MCHC 32.0, RDW Std Deviation 46.0 H, RDW Coeff of Nicholas 13.1, Plt Count 380, MPV 8.9, Immature Gran % (Auto) 0.700, Neut % (Auto) 80.3 H, Lymph % (Auto) 6.3 L, [place] % (Auto) 7.6, Eos % (Auto) 4.8, Baso % (Auto) 0.3, Absolute Neuts (auto) 10.4 H, Absolute Lymphs (auto) 0.82 L, Nucleated RBC % 0 03/22/21 14:05: Sodium 137, Potassium 3.2 L, Chloride 99, Carbon Dioxide 30.0, Anion Gap 8, BUN 13, Creatinine 0.63, Estim Creat Clear Calc 34.36, Est GFR (MDRD) Af Amer 120, Est GFR (MDRD) Non-Af 99, BUN/Creatinine Ratio 20.7 H, Glucose 160 H, Calcium 8.6, Total Bilirubin 0.40, AST 3 L, ALT 7 L, Alkaline Phosphatase 130 H, Troponin I High Sens 12, Total Protein 6.5, Albumin 2.4 L, Globulin 4.1, Albumin/Globulin Ratio 0.6 L 03/22/21 14:05: B-Natriuretic Peptide 70.0 Micro: Microbiology 03/22/21 14:20 Nasal Secretion SARS-CoV-2 Antigen (Rapid) - Final Radiology Impression Chest X-Ray 03/22/21 14:05 IMPRESSION: Hyperinflation. Infiltration in the right upper lobe. Correlation with a CT scan is recommended to rule out a right hilar mass with postobstructive pneumonitis. Electronically Signed: Ananth Mg MD at 14:25 EDT , Service support , Assessment & Plan Assessment/Plan (1) COPD exacerbation: (2) Pneumonia: (3) Hypoxia: PLAN: #Acute hypoxic respiratory insufficiency due to COPD exacerbation and community acquired pneumonia * admit to med surg * titrate oxygen to maintain sats >90% * started on IV ceftriaxone and azithromycin in the ED, will continue * breathing treatment with bronchodilators. * IV solumedrol 40mg q8 * #Acute COPD exacerbation #Community acquired pneumonia * as above. Check urine for strep and [place], and get sputum culture * #Type 2 diabetes mellitus: on metformin. ISS. Accuchecks ACHS. #Hyperlipidemia; on statin DVT prophylaxis: lovenox Code status: full code * Patient counseled extensively about different types of CODE STATUS including full code, DNR CCA and DNR CCA. Patient elects to be full code. * Total hegm-cf-tiff time 16 minutes. Charges/Coding Visit Charges Inpatient E&M: 05696 Init Hosp L3 Procedures Hospitalists Procedures: 85372 Advncd Care Plan 30 Min
[2021-03-22] MEDS: MethylPREDNISolone 125 MG/2 ML Vial IV (16:02)
[2021-03-22] MEDS: Ceftriaxone 1 GM/50 ML BAG IV (16:02)
[2021-03-22] MEDS: Acetaminophen 500 MG Tablet 1000 MG PO (17:15)
[2021-03-22 19:35] LABS: Bedside Glucose 279 mg/dL (70-110)
[2021-03-22] MEDS: Ipratropium/Albuterol Sulfate 3 ML AMPUL.NEB INHALATION (19:52)
[2021-03-22] MEDS: 0.9% Normal Saline 1,000 ML 75 ML IV (20:16)
[2021-03-22] MEDS: Insulin Lispro 100 UNIT/ML INSULN.PEN SC (20:19)
[2021-03-22] MEDS: hydrOXYzine PAM 25 MG Capsule PO (20:56)
[2021-03-22] MEDS: Pravastatin 20 MG Tablet 10 MG PO (20:56)
[2021-03-23] VITALS (16 sets, daily range): BP systolic 102–124; BP diastolic 44–67; PULSE 57–98; RESP 16–18; TEMP 36.4–37.2; O2SAT 93–97
[2021-03-23] MEDS: hydrOXYzine PAM 25 MG Capsule PO ×3 (05:02→21:39)
[2021-03-23] MEDS: Insulin Lispro 100 UNIT/ML INSULN.PEN SC ×4 (06:43→21:48)
[2021-03-23 06:51] LABS: Bedside Glucose 258 mg/dL (70-110)
[2021-03-23] MEDS: Ipratropium/Albuterol Sulfate 3 ML AMPUL.NEB INHALATION ×4 (07:13→19:35)
[2021-03-23 07:40] LABS: Absolute Lymphocyte Count 0.48 X10^3/uL (0.83-4.51); Basophil# 0.01 X10^3/uL; Basophil% 0.1 % (0-1); Hematocrit 30.6 % (37-47); Hemoglobin 9.6 g/dL (12.0-15.0); Lymphocyte # 0.48 X10^3/ul (0.83-4.51); Lymphocyte % 6.2 % (19-41); Mean Corp Hgb Conc 31.4 g/dL (32-36); Mean Corpuscular Hgb 30.1 pg (27.0-32.0); Mean Corpuscular Volume 95.9 fL (81-99); Mean Platelet Vol. 9.4 fl (6.2-12.0); Monocyte# 0.16 X10^3/uL; Monocyte% 2.1 % (0-10); NRBC Flagged by Analyzer 0 % (0-5); Neutrophil # 7.02 X10^3/uL (2.7-7.7); Neutrophil % 90.8 % (47-70); POSITIVE DIFFERENTIAL YES; Platelet Count 346 K/mm3 (150-450); RBC Distribution Width CV 13.2 % (11.6-14.6); RBC Distribution Width SD 46.9 fl (35.1-43.9); Red Blood Count 3.19 M/mm3 (4.2-5.4); White Blood Count 7.7 K/mm3 (4.4-11.0)
[2021-03-23 07:51] LABS: Differential Indicated SCAN CRITERIA MET
[2021-03-23 08:05] LABS: Anion Gap 6 (5-15); BUN 14 mg/dL (7-18); BUN/Creat Ratio 29.7 RATIO (10-20); Calcium,Total 8.4 mg/dL (8.5-10.1); Chloride 106 mmol/L (98-107); Creatinine, Serum 0.47 mg/dL (0.55-1.02); EST Glomerular Filtration Rate 138 mL/min (>60); Est Glom Filt Rate - Afr Amer 167 mL/min (>60); Estimated Creatinine Clearance 34.95 ml/min; Glucose 267 mg/dL (74-106); Potassium 3.8 mmol/L (3.5-5.1); Sodium Level 139 mmol/L (136-145)
[2021-03-23 08:08] LABS: Differential Comment SCANNED
--- NOTE | 2021-03-23 08:46 | CASEMGMT ---
Social Work Note Per policeman questions, pt has completed HCPOA and LW, pt hasn't provided copy to [facility] and pt unable to bring in copy. Lamar Gomez FIRE CONTROLMAN, SPORTS COMPLEX ATTENDANT
[2021-03-23] MEDS: metFORMIN HCl 500 MG Tablet PO ×2 (09:14→16:37)
[2021-03-23] MEDS: Pantoprazole Sodium 40 MG Tablet PO (09:14)
[2021-03-23] MEDS: Potassium Chloride Oral Tablet 20 MEQ 60 MEQ PO (09:14)
[2021-03-23] MEDS: Lisinopril 5 MG Tablet PO (09:14)
[2021-03-23] MEDS: FLUoxetine 20 MG Capsule 40 MG PO (09:14)
[2021-03-23] MEDS: Enoxaparin 40 MG/0.4 ML Syringe SC (09:14)
[2021-03-23] MEDS: Ceftriaxone 1 GM/50 mL Premix Q24 IV (09:17)
--- NOTE | 2021-03-23 10:47 | CASEMGMT ---
Addendum entered by Blank Foster 03/23/21 12:25: Pt reports she quit smoking on her own 7 mos ago. Original Note: NORMA ROBLES Assessment: Face to Face with pt for initial transition planning/care coordination assessment. NORMA ROBLES introduced self and role at [facility], pt voices understanding and consents to assessment. Pt is A/O x4 and answers all questions appropriately at this time. Pt sitting up in chair with O2 on in no distress. Care providers, pharmacy, and demographics verified/updated. Admitting Dx: CAP PCP:Kevin Specialists:Aris, onc; [place], eye Preferred [facility]acy: [facility] Insurance: [facility] Prescription Benefit: yes LW/HPOA: Pt states she has a LW/DPOA. She is aware that it is not on file at [facility]. She states her DPOA is her sister Ashley Ray. Pt states she does not know her phone number so this info was not updated. LNOK: Ashley Ray, sister Living Arrangements: Pt lives alone in a mobile home with 3 steps to enter with a rail. Pt reports being I in ADL's and denies concerns at home. Transportation: Pt drives self and denies concerns with transportation. DME/HHC/SNF: Pt denies having any DME in the home, prior HHC or SNF stays. Discussed with patient should she need home O2, the local in network DME companies and provided a list. Pt chose [employer]. Pt does not feel that she would need any HHC at this time. Pt states no concerns with going home at time of dc. Pt states no further concerns/needs. CM to follow. Advised pt to ask CM if any further question/concerns/needs arise, voices understanding. Pt Goal: Home Plan: Home, follow for O2.
[2021-03-23 12:30] LABS: Bedside Glucose 258 mg/dL (70-110)
--- NOTE | 2021-03-23 13:00 | PN.HOSP_ITS ---
Subjective Subjective Patient seen and examined. She feels better today. She had no complaints and felt her shortness of breath was better. She subsequently developed diarrhea. REview of systems is otherwise negative. Objective Data Objective Data Vital Signs: Vital Signs Temp Pulse Resp BP Pulse Ox 98.6 F 92 18 102/47 L 94 03/23/21 12:00 03/23/21 12:00 03/23/21 12:00 03/23/21 12:00 03/23/21 12:00 Oxygen Flow Rate (L/min) 3 Oxygen Delivery Method Nasal Cannula Weight: 94 lb 9.6 oz Body Mass Index (BMI) 17.9 Intake & Output: Intake and Output for Last 24 Hours 03/21/21 03/22/21 03/23/21 23:59 23:59 23:59 Intake Total 305 / 405 1668.75 / 1668.75 Balance 305 / 405 1668.75 / 1668.75 Lab / Micro Data Result Diagrams: 03/23/21 07:10 03/23/21 07:10 Labs: Laboratory Results - last 24 hr 03/22/21 14:05: WBC 12.9 H, RBC 3.53 L, Hgb 10.8 L, Hct 33.7 L, MCV 95.5, MCH 30.6, MCHC 32.0, RDW Std Deviation 46.0 H, RDW Coeff of Nicholas 13.1, Plt Count 380, MPV 8.9, Immature Gran % (Auto) 0.700, Neut % (Auto) 80.3 H, Lymph % (Auto) 6.3 L, [place] % (Auto) 7.6, Eos % (Auto) 4.8, Baso % (Auto) 0.3, Absolute Neuts (auto) 10.4 H, Absolute Lymphs (auto) 0.82 L, Nucleated RBC % 0 03/22/21 14:05: Sodium 137, Potassium 3.2 L, Chloride 99, Carbon Dioxide 30.0, Anion Gap 8, BUN 13, Creatinine 0.63, Estim Creat Clear Calc 34.36, Est GFR (MDRD) Af Amer 120, Est GFR (MDRD) Non-Af 99, BUN/Creatinine Ratio 20.7 H, Glucose 160 H, Calcium 8.6, Total Bilirubin 0.40, AST 3 L, ALT 7 L, Alkaline Phosphatase 130 H, Troponin I High Sens 12, Total Protein 6.5, Albumin 2.4 L, Globulin 4.1, Albumin/Globulin Ratio 0.6 L 03/22/21 14:05: B-Natriuretic Peptide 70.0 03/22/21 16:15: COVID-19 (KORIN) Not Detected 03/22/21 19:31: POC Glucose 279 H 03/23/21 06:41: POC Glucose 258 H 03/23/21 07:10: WBC 7.7, RBC 3.19 L, Hgb 9.6 L, Hct 30.6 L, MCV 95.9, MCH 30.1, MCHC 31.4 L, RDW Std Deviation 46.9 H, RDW Coeff of Nicholas 13.2, Plt Count 346, MPV 9.4, Immature Gran % (Auto) 0.800, Neut % (Auto) 90.8 H, Lymph % (Auto) 6.2 L, [place] % (Auto) 2.1, Eos % (Auto) 0.0, Baso % (Auto) 0.1, Absolute Neuts (auto) 7.0, Absolute Lymphs (auto) 0.48 L, Nucleated RBC % 0, Differential Comment SCANNED 03/23/21 07:10: Sodium 139, Potassium 3.8, Chloride 106, Carbon Dioxide 27.0, Anion Gap 6, BUN 14, Creatinine 0.47 L, Estim Creat Clear Calc 34.95, Est GFR (MDRD) Af Amer 167, Est GFR (MDRD) Non-Af 138, BUN/Creatinine Ratio 29.7 H, Glucose 267 H, Calcium 8.4 L 03/23/21 12:10: POC Glucose 258 H Micro: Microbiology 03/22/21 00:00 Urine, Clean Catch Legionella Antigen - Final 03/22/21 00:00 Urine, Clean Catch Streptococcus pneumoniae Antigen (M - Final 03/22/21 14:20 Nasal Secretion SARS-CoV-2 Antigen (Rapid) - Final Radiography Diagnostic Testing: Radiology Impression Chest X-Ray 03/22/21 14:05 IMPRESSION: Hyperinflation. Infiltration in the right upper lobe. Correlation with a CT scan is recommended to rule out a right hilar mass with postobstructive pneumonitis. Electronically Signed: Ananth Mg MD at 14:25 EDT , Service support , Physical Exam Const alert, oriented x3, no apparent distress and well nourished General Appearance: cooperative Exam Limitations: no limitations HEENT normocephalic, head/scalp atraumatic and moist oral mucous membranes Head and Scalp: normocephalic Eyes PERRL, EOMs intact bilaterally and conjunctivae normal Neck no lymphadenopathy Resp Resp Narrative: tachypneic, diminished breath sounds bibasally, no wheezes or crackles. On 2L of oxygen Cardio regular rate, regular rhythm, S1 normal heart sound, S2 normal heart sound and no murmurs GI normal to inspection, nondistended, normoactive bowel sounds, soft to palpation, non-tender and non-distended Extremity normal to inspection, full ROM and no clubbing, cyanosis or edema Peripheral Pulses: Yes pulses 2+ throughout Skin no rashes or lesions noted Neuro oriented x3, CN's II-XII intact bilaterally and moves all extremities Sensorium / Orientation: awake and alert Psych affect normal Assessment & Plan Assessment/Plan (1) COPD exacerbation: (2) Pneumonia: (3) Hypoxia: PLAN: #Acute hypoxic respiratory insufficiency due to COPD exacerbation and community acquired pneumonia * feels much better today * on IV ceftriaxone and azithromycin. * urine for strep and legionella are negative. * on IV solumedrol * sputum culture is pending * on 2L * #Acute COPD exacerbation: as above. #Community acquired pneumonia * as above. urine for strep and legionella. * #Diarrhea * patient developed diarrhea today. * will check for C Diff and stool for enteric pathogen. * #Type 2 diabetes mellitus: on metformin. ISS. Accuchecks ACHS. #Hyperlipidemia; on statin DVT prophylaxis: lovenox Code status: full code * Charges/Coding Visit Charges Inpatient E&M: 99601 Subs Hosp L2
[2021-03-23] MEDS: 0.9% Saline Lock 10 ML Syringe IV ×2 (14:43→21:39)
[2021-03-23 16:51] LABS: Bedside Glucose 186 mg/dL (70-110)
[2021-03-23] MEDS: Loperamide 2 MG Capsule PO (18:18)
[2021-03-23] MEDS: Pravastatin 20 MG Tablet 10 MG PO (21:39)
[2021-03-23 23:10] LABS: Bedside Glucose 271 mg/dL (70-110)
[2021-03-24] VITALS (14 sets, daily range): BP systolic 115–148; BP diastolic 47–72; PULSE 56–93; RESP 14–24; TEMP 35.9–37.1; O2SAT 93–97
[2021-03-24] MEDS: hydrOXYzine PAM 25 MG Capsule PO ×3 (06:42→21:17)
[2021-03-24] MEDS: 0.9% Saline Lock 10 ML Syringe IV ×4 (06:43→21:20)
[2021-03-24] MEDS: Insulin Lispro 100 UNIT/ML INSULN.PEN SC ×4 (06:43→21:18)
[2021-03-24] MEDS: Ipratropium/Albuterol Sulfate 3 ML AMPUL.NEB INHALATION ×4 (06:47→19:19)
[2021-03-24 06:55] LABS: Bedside Glucose 209 mg/dL (70-110)
[2021-03-24] MEDS: Enoxaparin 40 MG/0.4 ML Syringe SC (08:18)
[2021-03-24] MEDS: Acetaminophen 325 MG Tablet 650 MG PO (08:18)
[2021-03-24] MEDS: Lisinopril 5 MG Tablet PO (08:19)
[2021-03-24] MEDS: Pantoprazole Sodium 40 MG Tablet PO (08:19)
[2021-03-24] MEDS: metFORMIN HCl 500 MG Tablet PO ×2 (08:19→17:03)
[2021-03-24] MEDS: FLUoxetine 20 MG Capsule 40 MG PO (08:19)
[2021-03-24 08:34] LABS: Absolute Lymphocyte Count 0.52 X10^3/uL (0.83-4.51); Absolute Neutrophil Count 14.3 X10^3/uL (2.0-7.7); Basophil# 0.01 X10^3/uL; Basophil% 0.1 % (0-1); Hematocrit 31.6 % (37-47); Hemoglobin 9.9 g/dL (12.0-15.0); Lymphocyte # 0.52 X10^3/ul (0.83-4.51); Lymphocyte % 3.4 % (19-41); Mean Corp Hgb Conc 31.3 g/dL (32-36); Mean Corpuscular Hgb 30.8 pg (27.0-32.0); Mean Corpuscular Volume 98.4 fL (81-99); Mean Platelet Vol. 9.1 fl (6.2-12.0); Monocyte# 0.43 X10^3/uL; Monocyte% 2.8 % (0-10); NRBC Flagged by Analyzer 0 % (0-5); Neutrophil # 14.25 X10^3/uL (2.7-7.7); Neutrophil % 93.2 % (47-70); POSITIVE DIFFERENTIAL YES; Platelet Count 375 K/mm3 (150-450); RBC Distribution Width CV 13.6 % (11.6-14.6); RBC Distribution Width SD 49.6 fl (35.1-43.9); Red Blood Count 3.21 M/mm3 (4.2-5.4); White Blood Count 15.3 K/mm3 (4.4-11.0)
[2021-03-24 08:46] LABS: Differential Indicated SCAN CRITERIA MET
[2021-03-24 08:53] LABS: Anion Gap 6 (5-15); BUN 25 mg/dL (7-18); BUN/Creat Ratio 41.5 RATIO (10-20); Calcium,Total 9.1 mg/dL (8.5-10.1); Chloride 108 mmol/L (98-107); EST Glomerular Filtration Rate 104 mL/min (>60); Est Glom Filt Rate - Afr Amer 126 mL/min (>60); Estimated Creatinine Clearance 34.95 ml/min; Glucose 114 mg/dL (74-106); Potassium 4.8 mmol/L (3.5-5.1); Sodium Level 142 mmol/L (136-145)
--- NOTE | 2021-03-24 09:07 | PCS.PANDOC ---
PANDEMIC DOCUMENTATION INITIATED: Date: 01/15/2021 Time: 190
[2021-03-24 09:20] LABS: Differential Comment SCANNED
[2021-03-24] MEDS: Ceftriaxone 1 GM/50 mL Premix Q24 IV (09:35)
--- NOTE | 2021-03-24 11:18 | PN.HOSP_ITS ---
Subjective Subjective Patient seen and examined. She is coughing but says she is expectorating and is feeling better. She has no active complaints and review of systems otherwise negative. She is on 3 L of oxygen. Objective Data Objective Data Vital Signs: Vital Signs Temp Pulse Resp BP Pulse Ox 98.8 F 74 21 H 118/53 L 93 03/24/21 08:09 03/24/21 10:05 03/24/21 10:05 03/24/21 08:09 03/24/21 10:05 Oxygen Flow Rate (L/min) 2.5 Oxygen Delivery Method Nasal Cannula Weight: 94 lb 9.6 oz Body Mass Index (BMI) 17.9 Intake & Output: Intake and Output for Last 24 Hours 03/22/21 03/23/21 03/24/21 23:59 23:59 23:59 Intake Total 305 / 405 2068.75 / 2068.75 50 / 50 Balance 305 / 405 2068.75 / 2068.75 50 / 50 Medical Nutrition Assessment Dietitian: Malnutrition Criteria Met Start: 03/23/21 13:34 Freq: Status: Active Protocol: Document 03/23/21 13:34 LAW (Rec: 03/23/21 13:35 LAW [id number]) Nutrition Malnutrition Evidence of Malnutrition Exists Yes Malnutrition (severe): Chronic Evidenced By Weight Loss (Severe),Physical Changes (Severe) Clinical Problem Altered Nutrient-Related Laboratory Values Etiology related to diabetes and steroid administration Signs/Symptoms as evidenced by gluc 267 Status Active Problem Chronic Disease or Condition Related Malnutrition Etiology related to COPD and inability to consume adequate energy to meet estimated nutritional needs Signs/Symptoms as evidenced by 24.4% wt loss x >1 yr and fat/muscle loss ( face/orbitals/clavicle and arms/legs) Status Active Problem Recommendation Dietitian Recommendations/Changes Will continue diet w/ oral nutrition supplement as ordered Lab / Micro Data Result Diagrams: 03/24/21 08:25 03/24/21 08:25 Labs: Laboratory Results - last 24 hr 03/23/21 12:10: POC Glucose 258 H 03/23/21 16:35: POC Glucose 186 H 03/23/21 21:43: POC Glucose 271 H 03/24/21 06:38: POC Glucose 209 H 03/24/21 08:25: WBC 15.3 H, RBC 3.21 L, Hgb 9.9 L, Hct 31.6 L, MCV 98.4, MCH 30.8, MCHC 31.3 L, RDW Std Deviation 49.6 H, RDW Coeff of Nicholas 13.6, Plt Count 375, MPV 9.1, Immature Gran % (Auto) 0.500, Neut % (Auto) 93.2 H, Lymph % (Auto) 3.4 L, [place] % (Auto) 2.8, Eos % (Auto) 0.0, Baso % (Auto) 0.1, Absolute Neuts (auto) 14.3 H, Absolute Lymphs (auto) 0.52 L, Nucleated RBC % 0, Differential Comment SCANNED 03/24/21 08:25: Sodium 142, Potassium 4.8, Chloride 108 H, Carbon Dioxide 28.0, Anion Gap 6, BUN 25 H, Creatinine 0.60, Estim Creat Clear Calc 34.95, Est GFR (MDRD) Af Amer 126, Est GFR (MDRD) Non-Af 104, BUN/Creatinine Ratio 41.5 H, Glucose 114 H, Calcium 9.1 Micro: Microbiology 03/23/21 12:20 Sputum, Expectorated/Coughed Gram Stain - Final 03/23/21 12:20 Sputum, Expectorated/Coughed Respiratory Culture - Preliminary Appears to be normal respiratory torsten. Further studies to follow. 03/22/21 14:25 Blood Culture (Wb) #2 - Right Forearm Blood Culture - Preliminary No growth in 48 hours. 03/22/21 14:05 Blood Culture (Wb) - Anticubital Right Blood Culture - Preliminary No growth in 48 hours. 03/23/21 12:05 Stool C. difficile DNA Amplification - Final 03/22/21 00:00 Urine, Clean Catch Legionella Antigen - Final 03/22/21 00:00 Urine, Clean Catch Streptococcus pneumoniae Antigen (M - Final 03/22/21 14:20 Nasal Secretion SARS-CoV-2 Antigen (Rapid) - Final Physical Exam Const alert, oriented x3, no apparent distress and well nourished General Appearance: cooperative Exam Limitations: no limitations HEENT normocephalic, head/scalp atraumatic and moist oral mucous membranes Eyes PERRL, EOMs intact bilaterally and conjunctivae normal Neck no lymphadenopathy Resp Resp Narrative: tachypneic, diminished breath sounds bibasally, no wheezes or crackles. On 2.5L of oxygen Cardio regular rate, regular rhythm, S1 normal heart sound, S2 normal heart sound and no murmurs GI normal to inspection, nondistended, normoactive bowel sounds, soft to palpation, non-tender and non-distended Extremity normal to inspection, full ROM and no clubbing, cyanosis or edema Skin no rashes or lesions noted Neuro oriented x3, CN's II-XII intact bilaterally and moves all extremities Sensorium / Orientation: awake and alert Psych affect normal Assessment & Plan Assessment/Plan (1) COPD exacerbation: (2) Pneumonia: (3) Hypoxia: PLAN: #Acute hypoxic respiratory insufficiency due to COPD exacerbation and community acquired pneumonia * feels much better today * on IV ceftriaxone and azithromycin. * urine for strep and legionella are negative. * on IV solumedrol * wbc is up to 15 today, which is likely due to steroids, as patient is feeling better * sputum culture is pending * on 2.5L of oxygen today. * wean down oxygen as tolerated. Breathing treatment with bronchodilators. * #Acute COPD exacerbation: as above. #Community acquired pneumonia * as above. urine for strep and legionella are negative * sputum culture shows normal respiratory torsten #Diarrhea * resolved. Stool for C diff was negative. * #Type 2 diabetes mellitus: on metformin. ISS. Accuchecks ACHS. #Hyperlipidemia; on statin DVT prophylaxis: lovenox Code status: full code * Charges/Coding Visit Charges Inpatient E&M: 04836 Subs Hosp L2
[2021-03-24 12:20] LABS: Bedside Glucose 307 mg/dL (70-110)
[2021-03-24 17:11] LABS: Bedside Glucose 173 mg/dL (70-110)
[2021-03-24] MEDS: Pravastatin 20 MG Tablet 10 MG PO (21:18)
[2021-03-24 21:40] LABS: Bedside Glucose 349 mg/dL (70-110)
[2021-03-25] VITALS (18 sets, daily range): BP systolic 134–162; BP diastolic 41–75; PULSE 53–102; RESP 18–24; TEMP 36.5–37.2; O2SAT 90–96
[2021-03-25] MEDS: hydrOXYzine PAM 25 MG Capsule PO ×3 (06:41→22:02)
[2021-03-25] MEDS: Insulin Lispro 100 UNIT/ML INSULN.PEN SC ×4 (06:42→22:01)
[2021-03-25] MEDS: 0.9% Saline Lock 10 ML Syringe IV (06:43)
[2021-03-25 06:56] LABS: Bedside Glucose 234 mg/dL (70-110)
[2021-03-25 07:15] LABS: Absolute Lymphocyte Count 0.77 X10^3/uL (0.83-4.51); Absolute Neutrophil Count 12.2 X10^3/uL (2.0-7.7); Basophil# 0.01 X10^3/uL; Basophil% 0.1 % (0-1); Hematocrit 31.5 % (37-47); Hemoglobin 9.9 g/dL (12.0-15.0); Lymphocyte # 0.77 X10^3/ul (0.83-4.51); Lymphocyte % 5.8 % (19-41); Mean Corp Hgb Conc 31.4 g/dL (32-36); Mean Corpuscular Hgb 30.5 pg (27.0-32.0); Mean Corpuscular Volume 96.9 fL (81-99); Mean Platelet Vol. 9.1 fl (6.2-12.0); Monocyte# 0.29 X10^3/uL; Monocyte% 2.2 % (0-10); NRBC Flagged by Analyzer 0 % (0-5); Neutrophil # 12.21 X10^3/uL (2.7-7.7); Neutrophil % 91.1 % (47-70); Platelet Count 375 K/mm3 (150-450); RBC Distribution Width CV 13.7 % (11.6-14.6); RBC Distribution Width SD 49.4 fl (35.1-43.9); Red Blood Count 3.25 M/mm3 (4.2-5.4); White Blood Count 13.4 K/mm3 (4.4-11.0)
[2021-03-25] MEDS: Ipratropium/Albuterol Sulfate 3 ML AMPUL.NEB INHALATION ×4 (07:15→19:40)
[2021-03-25 07:28] LABS: Anion Gap 4 (5-15); BUN 28 mg/dL (7-18); BUN/Creat Ratio 45.5 RATIO (10-20); Chloride 103 mmol/L (98-107); Creatinine, Serum 0.62 mg/dL (0.55-1.02); EST Glomerular Filtration Rate 101 mL/min (>60); Est Glom Filt Rate - Afr Amer 123 mL/min (>60); Estimated Creatinine Clearance 34.95 ml/min; Glucose 229 mg/dL (74-106); Sodium Level 138 mmol/L (136-145)
[2021-03-25] MEDS: FLUoxetine 20 MG Capsule 40 MG PO (08:40)
[2021-03-25] MEDS: Ceftriaxone 1 GM/50 mL Premix Q24 IV (08:40)
[2021-03-25] MEDS: Enoxaparin 40 MG/0.4 ML Syringe SC (08:41)
[2021-03-25] MEDS: Pantoprazole Sodium 40 MG Tablet PO (08:41)
[2021-03-25] MEDS: metFORMIN HCl 500 MG Tablet PO ×2 (08:41→16:13)
[2021-03-25] MEDS: Lisinopril 5 MG Tablet PO (08:42)
[2021-03-25 11:45] LABS: Bedside Glucose 257 mg/dL (70-110)
--- NOTE | 2021-03-25 13:54 | PN.HOSP_ITS ---
Subjective Subjective Patient seen and examined. She is coughing and bringing up sputum. She feels her shortness of breath is improved and she is down to 1 L of oxygen. Review of systems otherwise negative. WBC is down to 13.4 from 15.3 yesterday. Objective Data Objective Data Vital Signs: Vital Signs Temp Pulse Resp BP Pulse Ox 98.2 F 88 18 149/68 H 94 03/25/21 07:30 03/25/21 11:22 03/25/21 10:34 03/25/21 07:30 03/25/21 07:30 Oxygen Flow Rate (L/min) 2 Oxygen Delivery Method Nasal Cannula Weight: 94 lb 9.6 oz Body Mass Index (BMI) 17.9 Intake & Output: Intake and Output for Last 24 Hours 03/23/21 03/24/21 03/25/21 23:59 23:59 23:59 Intake Total 2068.75 / 2068.75 305 / 305 305 / 305 Balance 2068.75 / 2068.75 305 / 305 305 / 305 Medical Nutrition Assessment Dietitian: Malnutrition Criteria Met Start: 03/23/21 13 :34 Freq: Status: Active Protocol: Document 03/23/21 13:34 LAW (Rec: 03/23/21 13:35 [facility] [id number]) Nutrition Malnutrition Evidence of Malnutrition Exists Yes Malnutrition (severe): Chronic Evidenced By Weight Loss (Severe),Physical Changes (Severe) Clinical Problem Altered Nutrient-Related Laboratory Values Etiology related to diabetes and steroid administration Signs/Symptoms as evidenced by gluc 267 Status Active Problem Chronic Disease or Condition Related Malnutrition Etiology related to COPD and inability to consume adequate energy to meet estimated nutritional needs Signs/Symptoms as evidenced by 24.4% wt loss x >1 yr and fat/muscle loss ( face/orbitals/clavicle and arms/legs) Status Active Problem Recommendation Dietitian Recommendations/Changes Will continue diet w/ oral nutrition supplement as ordered Lab / Micro Data Result Diagrams: 03/25/21 07:03 03/25/21 07:03 Labs: Laboratory Results - last 24 hr 03/24/21 17:00: POC Glucose 173 H 03/24/21 21:14: POC Glucose 349 H 03/25/21 06:35: POC Glucose 234 H 03/25/21 07:03: WBC 13.4 H, RBC 3.25 L, Hgb 9.9 L, Hct 31.5 L, MCV 96.9, MCH 30.5, MCHC 31.4 L, RDW Std Deviation 49.4 H, RDW Coeff of Nicholas 13.7, Plt Count 375, MPV 9.1, Immature Gran % (Auto) 0.800, Neut % (Auto) 91.1 H, Lymph % (Auto) 5.8 L, [place] % (Auto) 2.2, Eos % (Auto) 0.0, Baso % (Auto) 0.1, Absolute Neuts (auto) 12.2 H, Absolute Lymphs (auto) 0.77 L, Nucleated RBC % 0 03/25/21 07:03: Sodium 138, Potassium 5.0, Chloride 103, Carbon Dioxide 31.0, Anion Gap 4 L, BUN 28 H, Creatinine 0.62, Estim Creat Clear Calc 34.95, Est GFR (MDRD) Af Amer 123, Est GFR (MDRD) Non-Af 101, BUN/Creatinine Ratio 45.5 H, Glucose 229 H, Calcium 9.0 03/25/21 11:30: POC Glucose 257 H Micro: Microbiology 03/23/21 12:20 Sputum, Expectorated/Coughed Gram Stain - Final 03/23/21 12:20 Sputum, Expectorated/Coughed Respiratory Culture - Preliminary Appears to be normal respiratory torsten. Further studies to follow. 03/22/21 14:25 Blood Culture (Wb) #2 - Right Forearm Blood Culture - Preliminary No growth in 48 hours. 03/22/21 14:05 Blood Culture (Wb) - Anticubital Right Blood Culture - Preliminary No growth in 48 hours. 03/23/21 12:05 Stool C. difficile DNA Amplification - Final 03/22/21 00:00 Urine, Clean Catch Legionella Antigen - Final 03/22/21 00:00 Urine, Clean Catch Streptococcus pneumoniae Antigen (M - Final 03/22/21 14:20 Nasal Secretion SARS-CoV-2 Antigen (Rapid) - Final Physical Exam Const alert, oriented x3, no apparent distress and well nourished General Appearance: cooperative Exam Limitations: no limitations HEENT normocephalic, head/scalp atraumatic and moist oral mucous membranes Head and Scalp: normocephalic Eyes PERRL, EOMs intact bilaterally and conjunctivae normal Neck no lymphadenopathy Resp Resp Narrative: few coarse crackles bilaterally, on 1L of oxygen. Cardio regular rate, regular rhythm, S1 normal heart sound, S2 normal heart sound and no murmurs GI normal to inspection, nondistended, normoactive bowel sounds, soft to palpation, non-tender and non-distended Extremity normal to inspection, full ROM and no clubbing, cyanosis or edema Peripheral Pulses: Yes pulses 2+ throughout Skin no rashes or lesions noted Neuro oriented x3, CN's II-XII intact bilaterally and moves all extremities Sensorium / Orientation: awake and alert Psych affect normal Assessment & Plan Assessment/Plan (1) COPD exacerbation: (2) Pneumonia: (3) Hypoxia: PLAN: #Acute hypoxic respiratory insufficiency due to COPD exacerbation and community acquired pneumonia * now on 1L of oxygen. * on IV ceftriaxone and azithromycin. * urine for strep and legionella are negative. * on IV solumedrol; switch to PO prednisone * wbc is 13.4 * sputum culture groing normal respiratory torsten. * wean down oxygen as tolerated. Breathing treatment with bronchodilators. * #Acute COPD exacerbation: as above. #Community acquired pneumonia * as above. urine for strep and legionella are negative * sputum culture shows normal respiratory torsten * #Diarrhea * resolved. Stool for C diff was negative. * #Type 2 diabetes mellitus: on metformin. ISS. Accuchecks ACHS. #Hyperlipidemia; on statin DVT prophylaxis: lovenox Code status: full code * Disposition: patient got hypoxic with walking pulse ox today. WIll therefore likely dc tomorrow. Charges/Coding Visit Charges Inpatient E&M: 66143 Subs Hosp L2
[2021-03-25 16:41] LABS: Bedside Glucose 260 mg/dL (70-110)
[2021-03-25] MEDS: Acetaminophen 325 MG Tablet 650 MG PO (19:57)
[2021-03-25] MEDS: Pravastatin 20 MG Tablet 10 MG PO (22:02)
[2021-03-25 22:11] LABS: Bedside Glucose 290 mg/dL (70-110)
[2021-03-26] VITALS (9 sets, daily range): BP systolic 144–164; BP diastolic 64–71; PULSE 64–92; RESP 16–20; TEMP 36.9; O2SAT 92–95
[2021-03-26] MEDS: hydrOXYzine PAM 25 MG Capsule PO ×2 (06:11→13:56)
[2021-03-26 06:21] LABS: Bedside Glucose 134 mg/dL (70-110)
[2021-03-26 07:03] LABS: Absolute Lymphocyte Count 1.34 X10^3/uL (0.83-4.51); Absolute Neutrophil Count 9.2 X10^3/uL (2.0-7.7); Basophil# 0.02 X10^3/uL; Basophil% 0.2 % (0-1); Eosinophil# 0.01 X10^3/uL; Eosinophils% 0.1 % (0-5); Hemoglobin 10.4 g/dL (12.0-15.0); Lymphocyte # 1.34 X10^3/ul (0.83-4.51); Lymphocyte % 11.8 % (19-41); Mean Corp Hgb Conc 32.5 g/dL (32-36); Mean Corpuscular Hgb 30.3 pg (27.0-32.0); Mean Corpuscular Volume 93.3 fL (81-99); Mean Platelet Vol. 9.5 fl (6.2-12.0); Monocyte% 6.2 % (0-10); NRBC Flagged by Analyzer 0 % (0-5); Neutrophil # 9.17 X10^3/uL (2.7-7.7); Neutrophil % 80.6 % (47-70); Platelet Count 405 K/mm3 (150-450); RBC Distribution Width CV 13.4 % (11.6-14.6); RBC Distribution Width SD 46.2 fl (35.1-43.9); Red Blood Count 3.43 M/mm3 (4.2-5.4); White Blood Count 11.4 K/mm3 (4.4-11.0)
[2021-03-26 07:28] LABS: Anion Gap 5 (5-15); BUN 26 mg/dL (7-18); BUN/Creat Ratio 50.5 RATIO (10-20); Calcium,Total 9.3 mg/dL (8.5-10.1); Chloride 100 mmol/L (98-107); Creatinine, Serum 0.52 mg/dL (0.55-1.02); EST Glomerular Filtration Rate 125 mL/min (>60); Est Glom Filt Rate - Afr Amer 151 mL/min (>60); Estimated Creatinine Clearance 34.95 ml/min; Glucose 149 mg/dL (74-106); Potassium 4.3 mmol/L (3.5-5.1); Sodium Level 136 mmol/L (136-145)
[2021-03-26] MEDS: Lisinopril 5 MG Tablet PO (07:32)
[2021-03-26] MEDS: FLUoxetine 20 MG Capsule 40 MG PO (07:32)
[2021-03-26] MEDS: Enoxaparin 40 MG/0.4 ML Syringe SC (07:33)
[2021-03-26] MEDS: metFORMIN HCl 500 MG Tablet PO (07:33)
[2021-03-26] MEDS: Pantoprazole Sodium 40 MG Tablet PO (07:33)
[2021-03-26] MEDS: predniSONE 20 MG Tablet 40 MG PO (07:36)
[2021-03-26] MEDS: Ceftriaxone 1 GM/50 mL Premix Q24 IV (09:34)
[2021-03-26] MEDS: 0.9% Saline Lock 10 ML Syringe IV ×2 (09:34→13:56)
[2021-03-26] MEDS: Insulin Lispro 100 UNIT/ML INSULN.PEN SC (10:58)
[2021-03-26] MEDS: Ipratropium/Albuterol Sulfate 3 ML AMPUL.NEB INHALATION (11:17)
--- NOTE | 2021-03-26 11:51 | DS.PCM_ITS ---
Providers Date of Admission: 03/22/21 Primary Care Physician: Dr. Chavez Brown MD Reason For Visit: COMMUNITY AQUIRED PNEUMONIA Diagnosis Discharge Diagnosis (1) COPD exacerbation: Status: Chronic Code(s): J44.1 - Chronic obstructive pulmonary disease with (acute) exacerbation (2) Pneumonia: Status: Acute Code(s): J18.9 - Pneumonia, unspecified organism (3) Hypoxia: Status: Acute Code(s): R09.02 - Hypoxemia (4) Malnutrition: Status: Acute Code(s): E46 - Unspecified protein-calorie malnutrition Medications at Discharge Home Medications hydroxyzine pamoate 25 mg PO TID 02/13/18 meclizine 25 mg PO 4X/DAY PRN PRN 02/13/18 prochlorperazine maleate 10 mg PO Q6H PRN PRN 02/13/18 fluoxetine 20 mg capsule 40 mg PO DAILY cap 08/05/19 fluticasone propionate 230 mcg-salmeterol 21 mcg/actuation HFA inhaler 2 puff INHALATION BID 08/05/19 ipratropium bromide 17 mcg/actuation HFA aerosol inhaler 2 puff INHALATION TID 08/05/19 lisinopril 5 mg tablet 5 mg PO DAILY 08/05/19 metformin 500 mg tablet 500 mg PO BID 08/05/19 pantoprazole 40 mg tablet,delayed release 40 mg PO DAILY 08/05/19 perflutren lipid microspheres 1.1 mg/mL intravenous suspension See Rx Instructions .ROUTE QMONTH ml 08/05/19 pravastatin 10 mg tablet 10 mg PO DAILY 08/05/19 tizanidine 4 mg capsule 4 mg PO TID PRN 08/05/19 trazodone 50 mg tablet 50 mg PO QHS PRN 08/05/19 albuterol sulfate 1 - 2 puff INHALATION Q4H PRN PRN 08/16/19 levofloxacin 500 mg PO DAILY #5 tab 03/26/21 prednisone 40 mg PO DAILY #10 tab 03/26/21 Hospital Course Operations None Procedures None Summary of Care Provided Minutes Spent on Discharge: 40 Hospital Course: DANIEL PETERSEN, is a 70 F with a PMH as outlined who presen ts with a complaint of shortness of breath and an associated productive cough. She denied any fever, chills, chest pain, palpitations, dizziness, nausea or vomiting. She has had her COVID shots. Her rapid covid test was negative, and CXR showed a right lower lobe pneumonia. Vitals were temperature of 96.8 Fahrenheit with blood pressure of 94/44 and pulse rate of 84. She was breathing at a rate of 20 and pulse ox was 88% on room air but went up to 98% on 2 L of oxygen. She was admitted to be managed for acute COPD exacerbation and community-acquired pneumonia. She was started on IV ceftriaxone and azithromycin. She was also started on breathing treatments bronchodilators and IV Solu-Medrol. Patient shortness of breath gradually improved and her cough also improved. She was gradually weaned off of oxygen on room air. Sputum culture showed mixed normal respiratory torsten. Covid test done was negative and blood cultures showed no growth after 48 hours. Patient remained stable and his symptoms improved. She was discharged home on 03/26/2021 on p.o. levofloxacin for 5 days as well as prednisone p.o. 40 mg daily for 5 days. She is to follow- up with her primary care doctor in 1 to 2 weeks. Of note, patient was also noted to be malnourished whilst on admission with BMI of 17.9. Plan was for her to be on nutritional supplements. Patient seen and examined prior to discharge. She felt much better and had no complaints. Shortness of breath had improved. Review of systems otherwise negative. Labs and vitals reviewed. Medication reviewed and reconciled. Physical Exam Const alert, oriented x3, no apparent distress and well nourished General Appearance: cooperative, comfortable and well kempt Exam Limitations: no limitations HEENT normocephalic, head/scalp atraumatic and moist oral mucous membranes Eyes PERRL, EOMs intact bilaterally and conjunctivae normal Neck no lymphadenopathy Resp Resp Narrative: diminished breath sounds bibasally, no wheezes or crackles. On room air. Cardio regular rate, regular rhythm, S1 normal heart sound, S2 normal heart sound and no murmurs GI normal to inspection, nondistended, normoactive bowel sounds, soft to palpation, non-tender and non-distended Extremity normal to inspection, full ROM and no clubbing, cyanosis or edema Skin no rashes or lesions noted Neuro oriented x3, CN's II-XII intact bilaterally and moves all extremities Sensorium / Orientation: awake and alert Psych affect normal Medical Records Data Medical Nutrition Assessment Dietitian: Malnutrition Criteria Met Start: 03/23/21 13:34 Freq: Status: Active Protocol: Document 03/23/21 13:34 LAW (Rec: 03/23/21 13:35 LAW [id number]) Nutrition Malnutrition Evidence of Malnutrition Exists Yes Malnutrition (severe): Chronic Evidenced By Weight Loss (Severe),Physical Changes (Severe) Clinical Problem Altered Nutrient-Related Laboratory Values Etiology related to diabetes and steroid administration Signs/Symptoms as evidenced by gluc 267 Status Active Problem Chronic Disease or Condition Related Malnutrition Etiology related to COPD and inability to consume adequate energy to meet estimated nutritional needs Signs/Symptoms as evidenced by 24.4% wt loss x >1 yr and fat/muscle loss ( face/orbitals/clavicle and arms/legs) Status Active Problem Recommendation Dietitian Recommendations/Changes Will continue diet w/ oral nutrition supplement as ordered Weight / BMI Weight Weight: 94 lb 9.6 oz Body Mass Index (BMI) 17.9 ABG / Lab / Microbiology Data Result Diagrams: 03/26/21 05:46 03/26/21 05:46 Laboratory: Laboratory Results - last 24 hr 03/25/21 16:04: POC Glucose 260 H 03/25/21 21:54: POC Glucose 290 H 03/26/21 05:46: WBC 11.4 H, RBC 3.43 L, Hgb 10.4 L, Hct 32.0 L, MCV 93.3, MCH 30.3, MCHC 32.5, RDW Std Deviation 46.2 H, RDW Coeff of Nicholas 13.4, Plt Count 405, MPV 9.5, Immature Gran % (Auto) 1.100 H, Neut % (Auto) 80.6 H, Lymph % (Auto) 11.8 L, [place] % (Auto) 6.2, Eos % (Auto) 0.1, Baso % (Auto) 0.2, Absolute Neuts (auto) 9.2 H, Absolute Lymphs (auto) 1.34, Nucleated RBC % 0 03/26/21 05:46: Sodium 136, Potassium 4.3, Chloride 100, Carbon Dioxide 31.0, Anion Gap 5, BUN 26 H, Creatinine 0.52 L, Estim Creat Clear Calc 34.95, Est GFR (MDRD) Af Amer 151, Est GFR (MDRD) Non-Af 125, BUN/Creatinine Ratio 50.5 H, Glucose 149 H, Calcium 9.3 03/26/21 06:09: POC Glucose 134 H Microbiology: Microbiology 03/23/21 12:20 Sputum, Expectorated/Coughed Gram Stain - Final 03/23/21 12:20 Sputum, Expectorated/Coughed Respiratory Culture - Final Mixed normal respiratory torsten. No Streptococcus pneumoniae, beta-hemolytic Streptococcus or Staphylococcus aureus isolated. 03/22/21 14:25 Blood Culture (Wb) #2 - Right Forearm Blood Culture - Preliminary No growth in 48 hours. 03/22/21 14:05 Blood Culture (Wb) - Anticubital Right Blood Culture - Preliminary No growth in 48 hours. 03/23/21 12:05 Stool C. difficile DNA Amplification - Final 03/22/21 00:00 Urine, Clean Catch Legionella Antigen - Final 03/22/21 00:00 Urine, Clean Catch Streptococcus pneumoniae Antigen (M - Final 03/22/21 14:20 Nasal Secretion SARS-CoV-2 Antigen (Rapid) - Final D/C Instructions Discharge Diet: Low fat / Low cholesterol Discharge Activity: Return to Normal Activity Weight Bearing Status: Weight bearing as tolerated Call your doctor if you observe: Fever of 101 or Higher, Shortness of breath, Dizziness, Swelling in the ankles, Chest pain and Increased palpitations (irregular heartbeat) Meaningful Use Info Meaningful Use Diagnoses (Choose all that apply): None applicable Discharge Plan Admission Admit Date/Time: 03/22/21 15:40 Primary Reason for Your Visit: community acquired pneumonia, COPD exacerbation Attending Provider: Daniella Oneal Primary Care Provider: Chavez Brown Instructions Patient Instructions: Discharge Instructions: COPD, ED Pneumonia (Adult) Discharge Orders/Prescriptions Prescriptions: New levofloxacin 500 mg tablet 500 mg PO DAILY Qty: 5 RF: 0 prednisone 20 mg tablet 40 mg PO DAILY Qty: 10 RF: 0 Continued fluticasone propion-salmeterol 230-21 mcg/actuation HFA aerosol inhaler 2 puff INHALATION BID RF: 0 ipratropium bromide 17 mcg/actuation HFA aerosol inhaler 2 puff INHALATION TID RF: 0 lisinopril 5 mg tablet 5 mg PO DAILY RF: 0 metformin 500 mg tablet 500 mg PO BID RF: 0 pantoprazole 40 mg tablet,delayed release (DR/EC) 40 mg PO DAILY RF: 0 pravastatin 10 mg tablet 10 mg PO DAILY RF: 0 tizanidine 4 mg capsule 4 mg PO TID PRN (Reason: Pain Or Fever) RF: 0 trazodone 50 mg tablet 50 mg PO QHS PRN (Reason: Sleep) RF: 0 perflutren lipid microspheres 1.1 mg/mL suspension See Rx Instructions .ROUTE QMONTH RF: 0 prochlorperazine maleate 10 MG tablet 10 mg PO Q6H PRN PRN (Reason: Nausea) RF: 0 meclizine 25 MG tablet 25 mg PO 4X/DAY PRN PRN (Reason: Dizziness) RF: 0 hydroxyzine pamoate 25 MG capsule 25 mg PO TID RF: 0 fluoxetine 20 mg capsule 40 mg PO DAILY RF: 0 albuterol sulfate 1 INHALER inhaler 1 - 2 puff inhalation Q4H PRN PRN (Reason: Sob &/Or Wheezing) RF: 0 Referrals / Follow Up: Chavez Brown MD [Primary Care Provider] - Within 2 Weeks Disposition Disposition (needs filled in before D/C Order can be placed): Home, Self Care Charges/Coding Visit Charges Inpatient E&M: 62975 Disch Hosp
[2021-03-26 14:11] LABS: Bedside Glucose 264 mg/dL (70-110)
--- NOTE | 2021-03-27 10:43 | CASEMGMT ---
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 Patient states that she is doing well and her neighbor is out getting her medications now so that she did not have to go out. Denies any issues, questions or concerns with [facility], medications or f/u. States has been using her breathing thing- Incentive Spirometer? Thanked patient for choosing care at [facility] and phone conversation was ended. MINDI Resendez
== END 2021-03-26 14:30 | disposition home or self-care (01) | DRG 193 ==
LOC: ED 15:37 → MS3 16:03
PROVIDERS: Admitting Provider Student in an Organized Health Care Education/Training Program; Emergency Provider Emergency Medicine; PCP Family Medicine; Visit Provider Student in an Organized Health Care Education/Training Program
DX: J18.9 Pneumonia, unspecified organism (principal); E43 Unspecified severe protein-calorie malnutrition; J44.1 Chronic obstructive pulmonary disease with (acute) exacerbation; Z68.1 Body mass index [BMI] 19.9 or less, adult; J44.0 Chronic obstructive pulmonary disease with (acute) lower respiratory infection; Z23 Encounter for immunization; R09.02 Hypoxemia; E78.5 Hyperlipidemia, unspecified; M19.90 Unspecified osteoarthritis, unspecified site; E11.9 Type 2 diabetes mellitus without complications; K21.9 Gastro-esophageal reflux disease without esophagitis; R19.7 Diarrhea, unspecified; Z79.899 Other long term (current) drug therapy; Z79.51 Long term (current) use of inhaled steroids; Z79.84 Long term (current) use of oral hypoglycemic drugs; Z72.0 Tobacco use
CPT/HCPCS: 36415; 71045; 80048; 80053; 82962; 83880; 84484; 85025; 87040; 87070; 87205; 87426; 87449; 87493; 87635; 93005; 94640; 97161; 97166; 97802; 99251; 99285; G0008; J7030; J7050; U0005; 90686; A4216; G0463; U0003

== ENCOUNTER 2021-10-24 13:05 | Outpatient (CLI) | payer MEDICARE, SELFPAY ==
--- NOTE | 2021-10-24 14:45 | PET_ITS ---
PROCEDURE: WHOLE BODY PET/CT SCAN, MID SKULL TO MID THIGH REASON FOR EXAM: Bilateral upper lobe pulmonary nodules. COMPARISON EXAMINATION: None. TECHNIQUE: Following the intravenous administration of 12.49 mCi of F-18 FDG, multiplanar imaging acquisitions of the neck, chest, abdomen/pelvis to the mid thigh, obtained at 1 hour post radiopharmaceutical administration. Interpretation is with co-registeration of similar anatomic distribution of CT. Findings: Normal and physiologic distribution of radioisotope identified in the expected intensity of the hepatic and splenic parenchyma, urinary tract and gastrointestinal structures. There is gross anatomic distribution of the intracranial contents. INDEX LESION SIZE SUV INTERPRETATION: 1. 1.1 x 1.2 cm nodule in the lateral right upper lobe on image 145 of series 201 with SUV measuring 1.3. 2. 0.8 x 1.1 cm noncalcified nodule in the anterior left upper lobe on image 152 of series 201 with SUV measuring 1.3. CT portion of the exam: There are interstitial fibrotic changes of the lungs. There is no demonstrated pleural abnormality. Normal heart and pericardium. There are calcifications of the coronary arteries. Calcified mediastinal lymph nodes. Normal hilar regions. Normal unenhanced pulmonary arteries. There is atherosclerotic calcification of the aortic arch with tortuosity and elongation of the aortic arch and descending thoracic aorta. Normal liver. There are surgical clips in the gallbladder fossa consistent with a prior cholecystectomy. There are multiple benign calcified granulomata of the spleen. Normal pancreas. Normal bilateral adrenal glands. Normal right kidney. Normal left kidney. Normal visualized stomach. Normal small intestine. Colonic fecal residue. No colon wall thickening. The appendix is visualized and appears normal. There is diffuse atherosclerotic calcification of the abdominal aorta, without a demonstrated aneurysm. Extensive atherosclerosis of the iliofemoral arteries. Normal inferior vena cava. Normal urinary bladder. There are diffuse degenerative changes of the visualized lumbar spine. PET/PET/CT Tumor Base -Thigh Init IMPRESSION: 1. Bilateral upper lobe pulmonary nodules do NOT meet criteria for viable neoplasm. Follow-up chest CT to document morphologic stability recommended. 2. Chronic changes, as detailed above. Electronically Signed: Shade Bolanos MD (Brooks) at 19:07 EDT ,
== END 2021-10-24 23:59 | disposition home or self-care (01) ==
PROVIDERS: PCP Family Medicine; Referring Provider Family Medicine; Visit Provider Family Medicine
DX: D49.1 Neoplasm of unspecified behavior of respiratory system (principal); R93.89 Abnormal findings on diagnostic imaging of other specified body structures; R91.8 Other nonspecific abnormal finding of lung field
CPT/HCPCS: 78815; A9552